=== PATIENT | female | born 1965 | race Caucasian/White ===

== ENCOUNTER → 2017-04-10 | Day surgery (SDC) | payer MEDICARE, OTHER ==
[2017-04-07 15:10] VITALS: BMI 31.8
[~2017-04-10] MED LIST: LACTATED RINGERS 1,000 ML IV SCH; LIDOCAINE 1% 20 ML VIAL (10MG/ML) FOR IV START INTRADERMA PRN; MIDAZOLAM 2 MG/2 ML VIAL ONE; PROPOFOL 10 MG/ML 20 ML VIAL IV ONE; fentaNYL (PF) 50 MCG/ML 2 ML AMP ONE
[2017-04-10 08:08] VITALS: RESP 16; TEMP 98.7
[2017-04-10 08:16] LABS: Glucose,Whole Blood 172 mg/dL (75-99)
--- NOTE | 2017-04-10 08:39 | P.PCN ---
Date of Procedure: 04/10/17 Procedure(s) Performed: BRIEF HISTORY: Patient is a 51-year-old pleasant white female, scheduled for an elective colonoscopy as a part of screening for colorectal neoplasia. PROCEDURE PERFORMED: Colonoscopy. PREOPERATIVE DIAGNOSIS: Screening for colon cancer. IV sedation per Anesthesia. PROCEDURE: After informed consent was obtained, the patient, was brought into the endoscopy unit. IV sedation was administered by Anesthesia under continuous monitoring. Digital rectal examination was normal. Initially the Olympus CF- 160 flexible video colonoscope was then inserted in the rectum, gradually advanced into the cecum without any difficulty. Careful examination was performed as the scope was gradually being withdrawn. Ileocecal valve and the appendiceal orifice were visualized and appeared normal. Prep was excellent. Mucosa of the cecum, ascending colon, transverse colon, descending colon, sigmoid colon, and rectum appeared normal. Retroflexion was performed in the rectum and no lesions were seen. The patient tolerated the procedure well. IMPRESSION: Normal-appearing colon from rectum to cecum with no evidence of colonic neoplasia . RECOMMENDATIONS: Findings of this examination were discussed with the patient as well as a family. She was advised to have a repeat screening colonoscopy in 10 years..
[2017-04-10 08:56] VITALS: BP 121/76; PULSE 80
== END ==
LOC: ORWHC2ENDO 07:24
PROVIDERS: ATTEND Internal Medicine Gastroenterology
DX: Z12.11 Encounter for screening for malignant neoplasm of colon (principal); Z79.84 Long term (current) use of oral hypoglycemic drugs; Z79.891 Long term (current) use of opiate analgesic; Z79.51 Long term (current) use of inhaled steroids; Z79.899 Other long term (current) drug therapy; J44.9 Chronic obstructive pulmonary disease, unspecified; F17.200 Nicotine dependence, unspecified, uncomplicated; E13.8 Other specified diabetes mellitus with unspecified complications; Z87.442 Personal history of urinary calculi; F31.9 Bipolar disorder, unspecified; F41.0 Panic disorder [episodic paroxysmal anxiety]; Z88.5 Allergy status to narcotic agent; Z88.2 Allergy status to sulfonamides
CPT/HCPCS: J2250; J3010; J2704; G0121

== ENCOUNTER → 2017-05-07 | Outpatient (CLI) | payer MEDICARE, OTHER ==
--- NOTE | 2017-05-08 05:27 | EST ---
EXERCISE STRESS DATE OF SERVICE: 05/07/2017 AGE: 51 SEX: Female HT: 62" WT: 180 pounds PROTOCOL: Exercise Tolerance, Soy. STAGE: I DURATION OF EXERCISE: 3 minutes HEART RATE REST: 95 BLOOD PRESSURE REST: 117/59 MAXIMUM HEART RATE ACHIEVED: 132 MAXIMUM BLOOD PRESSURE: 199/68 85% MPHR: 143 100% MPHR: 168 METS: 4.6 INDICATIONS: Chest pain. CLINICAL INFORMATION: Baseline EKG revealed normal sinus rhythm without significant ST-T changes. Patient walked on a standard Soy protocol for 3 minutes, achieved a maximal heart rate 132 beats per minute. Developed fatigue, complained of some tightness in the chest, difficulty in breathing and did not wish to walk any longer. She did not achieve her 85% of predicted maximal heart rate, but at this level. EKG did not reveal any ST- segment changes to indicate ischemia. There was no angina or arrhythmia. By EKG criteria, this is a inconclusive stress test because of inadequate chronotropic response with very limited exercise capacity. The patient had some atypical chest pain. If ischemia is strongly suspected, a pharmacological stress test would be a better approach. MMODL / IJN: [id number] /
--- NOTE | 2017-05-08 11:37 | MM ---
Reason for exam: screening (asymptomatic). Baseline mammogram. History: Patient is postmenopausal. Physical Findings: A clinical breast exam by your physician is recommended on an annual basis and results should be correlated with mammographic findings. MG 3D Screening Mammo W/Cad Bilateral CC and MLO view(s) were taken. The breast tissue is heterogeneously dense. This may lower the sensitivity of mammography. There is no discrete abnormality. ASSESSMENT: Negative, BI-RAD 1 RECOMMENDATION: Routine screening mammogram of both breasts in 1 year. Manage on a clinical basis with regard to bilateral swelling and pain.
== END | disposition home or self-care (01) ==
LOC: RADMAMWWP 10:25
PROVIDERS: ATTEND Internal Medicine
DX: Z12.31 Encounter for screening mammogram for malignant neoplasm of breast (principal); R53.83 Other fatigue; R07.89 Other chest pain; R06.00 Dyspnea, unspecified
CPT/HCPCS: 77063; 77067; 93017

== ENCOUNTER 2017-08-20 00:02 | Emergency (ER) | payer MEDICARE ==
[2017-08-20 00:25] VITALS: RESP 18
[2017-08-20] MEDS ORDERED: MAG HYDROX/AL HYDROX/SIMETH 30 ML, HYOSCYAMINE ELIXIR 10 ML, CIMETIDINE HCL 300 MG, LID... PO STA ×4 (01:18)
[2017-08-20] MEDS ORDERED: LORazepam 1 MG TAB PO STA (02:06)
--- NOTE | 2017-08-20 03:11 | ED ---
ENT HPI - General Chief complaint: ENT Stated complaint: Throat pain Time Seen by Provider: 08/20/17 01:01 Source: patient Mode of arrival: ambulatory Limitations: no limitations - History of Present Illness Initial comments: 52-year-old female patient presents to the emergency department today for complaints of anxiety and difficulty swallowing. Patient states that she has been having trouble with swallowing for the last 2 years. States that she has been unable to follow-up with ENT due to her insurance. She states that he got done eating pizza rolls and eating ice cream and started to have difficulty swallowing. Patient states that it felt like her throat was swollen. States that this caused spike in her anxiety. States she did take half of Xanax but was not helping. Patient denies any fevers or chills. Denies any shortness of breath. States that her anxiety is quite bad. She denies any suicidal or homicidal ideation. Patient denies any recent rash, chest pain, abdominal pain, nausea, vomiting, diarrhea, constipation, back pain, numbness, tingling, dizziness, weakness, hematuria, dysuria, urinary urgency, urinary frequency, headache, visual changes, or any other complaints. - Related Data Home Medications Medication Instructions Recorded Confirmed ALPRAZolam [Xanax] 0.5 mg PO BID PRN 04/25/15 04/10/17 Cholecalciferol [Vitamin D3] 5,000 unit PO QA 04/25/15 04/10/17 Loratadine [Claritin] 10 mg PO HS 04/25/15 04/10/17 Mupirocin 2% Oint [Bactroban 2% 1 applic TOPICAL DAILY PRN 04/25/15 04/10/17 Oint] Sennosides [Senokot] 8.6 mg PO BID PRN 04/25/15 04/10/17 cloNIDine HCL [Catapres] 0.1 mg PO HS 04/25/15 04/10/17 oxyCODONE-APAP 7.5-325MG [Percocet 1 tab PO Q4H PRN 04/25/15 04/06/17 7.5-325 mg] Aspirin [Adult Low Dose Aspirin EC] 162 mg PO HS 06/13/15 04/10/17 Beclomethasone Dipropionate [Qvar 1 puff INHALATION RT-BID 06/13/15 04/10/17 40 mcg/puff] Cyclobenzaprine [Flexeril] 10 mg PO TID PRN 09/04/15 04/10/17 PARoxetine HCL [Paxil] 20 mg PO HS 12/14/15 04/10/17 Pregabalin [Lyrica] 75 mg PO TID 01/10/16 04/06/17 Zolpidem [Ambien] 5 mg PO HS PRN 01/10/16 04/10/17 Albuterol Inhaler [Ventolin Hfa 2 puff INHALATION RT-TID PRN 01/12/16 04/10/17 Inhaler] metFORMIN HCL [Metformin HCl] 500 mg PO DAILY 07/31/16 04/06/17 Atorvastatin Calcium [Lipitor] 20 mg PO HS 04/06/17 04/10/17 Bisacodyl [Dulcolax] 5 mg PO DAILY PRN 04/06/17 04/10/17 Clotrimazole/Betameth Cream 1 applicate TOPICAL DAILY PRN 04/06/17 04/10/17 [Lotrisone] Losartan Potassium [Cozaar] 25 mg PO HS 04/06/17 04/10/17 Multivit with Calcium,Iron,Min 1 each PO DAILY 04/06/17 04/06/17 [Women's Multivitamin] Naproxen 500 mg PO BID PRN 04/06/17 04/10/17 Pantoprazole [Protonix] 40 mg PO BID 04/06/17 04/06/17 Allergies Allergy/AdvReac Type Severity Reaction Status Date / Time codeine Allergy Rash/Hives Verified 08/20/17 00:22 Sulfa (Sulfonamide Allergy Rash/Hives Verified 08/20/17 00:22 Antibiotics) Review of Systems ROS Statement: Those systems with pertinent positive or pertinent negative responses have been documented in the HPI. ROS Other: All systems not noted in ROS Statement are negative. Past Medical History Past Medical History: COPD, Diabetes Mellitus, GERD/Reflux Additional Past Medical History / Comment(s): back pain, gas & constipation, cervical spine stenosis;murmur as child, problems chewing & swallowing x 2 years, told in past she had a bad heart valve ,kidney stones, uti, "at times my heart feels like its fluttering like a butterfly", arthritis, stated has had a pne vaccine but date unk. History of Any Multi-Drug Resistant Organisms: None Reported Past Surgical History: Section, Orthopedic Surgery Additional Past Surgical History / Comment(s): foot surgery as a child Past Anesthesia/Blood Transfusion Reactions: Motion Sickness Past Psychological History: ADD/ADHD, Anxiety, Bipolar, Depression, Panic Disorder, PTSD, Schizoaffective Disorder Smoking Status: Current every day smoker Past Alcohol Use History: Rare Past Drug Use History: None Reported - Past Family History Mother History Unknown: Yes Family Medical History: Cancer, COPD, Diabetes Mellitus, Pneumonia Additional Family Medical History / Comment(s): .i know she has copd because she 's on oxygen",mental illness Father Family Medical History: Cancer Additional Family Medical History / Comment(s): lung/bone cancer General Exam Limitations: no limitations General appearance: alert, in no apparent distress, other (This is a well- developed, well-nourished adult female patient in mild distress due to anxiety. Vital signs upon presentation are temperature 98.4F, pulse 75, respirations 18, blood pressure 160/81, pulse ox 98% on room air.) Eye exam: Present: normal appearance, PERRL, EOMI. Absent: scleral icterus, conjunctival injection, periorbital swelling ENT exam: Present: normal exam, normal oropharynx, mucous membranes moist Neck exam: Present: normal inspection. Absent: tenderness, meningismus, lymphadenopathy Respiratory exam: Present: normal lung sounds bilaterally. Absent: respiratory distress, wheezes, rales, rhonchi, stridor Cardiovascular Exam: Present: regular rate, normal rhythm, normal heart sounds. Absent: systolic murmur, diastolic murmur, rubs, gallop, clicks GI/Abdominal exam: Present: soft, normal bowel sounds. Absent: distended, tenderness, guarding, rebound, rigid Neurological exam: Present: alert, oriented X3, CN II-XII intact Psychiatric exam: Present: normal affect, normal mood Skin exam: Present: warm, dry, intact, normal color. Absent: rash Course Vital Signs 08/20/17 08/20/17 00:22 01:41 Temperature 98.4 F Pulse Rate 75 Respiratory 18 18 Rate Blood Pressure 168/81 O2 Sat by Pulse 98 Oximetry Medical Decision Making - Medical Decision Making 52-year-old female patient presents to the emergency department today for evaluation of difficulty swallowing and anxiety. Physical examination is unremarkable. Lungs are clear to auscultation with good air movement. Physical examination of the oropharynx appeared normal. Patient was given a GI cocktail and 1 mg of Ativan. She states that her symptoms are much improved. She is followed without difficulty. Drinking water without difficulty. Respirations are even and unlabored. Patient does report having increased anxiety and depression related to the recent of her cats. She will be given outpatient referrals for counseling. She is instructed to follow-up with your nose and throat specialty as well as GI specialty for evaluation of her difficulty swallowing. Return parameters were discussed in detail. She verbalizes understanding and agrees with this plan. Disposition Clinical Impression: Dysphagia, Anxiety Disposition: HOME SELF-CARE Condition: Good Instructions: Generalized Anxiety Disorder (ED), Dysphagia (ED) Additional Instructions: Follow-up with counseling outpatient. Follow-up with your nose and throat specialty as well as gastroenterology to evaluate your difficulty swallowing. Return here immediately for any new, worsening, or concerning symptoms. Is patient prescribed a controlled substance at d/c from ED?: No Referrals: Susy Gooden MD [Primary Care Provider] - 1-2 days Edouard Montgomery MD [STAFF PHYSICIAN] - 1-2 days Gorge Bobo MD [STAFF PHYSICIAN] - 1-2 days Time of Disposition: 03:11
[2017-08-20 03:38] VITALS: BP 146/82; PULSE 67; TEMP 98.6
== END 2017-08-20 03:38 | disposition home or self-care (01) ==
LOC: EC 00:02
DX: R13.10 Dysphagia, unspecified (principal); F41.9 Anxiety disorder, unspecified; J44.9 Chronic obstructive pulmonary disease, unspecified; E11.9 Type 2 diabetes mellitus without complications; K21.9 Gastro-esophageal reflux disease without esophagitis; F31.9 Bipolar disorder, unspecified; F25.9 Schizoaffective disorder, unspecified; F43.10 Post-traumatic stress disorder, unspecified; F17.200 Nicotine dependence, unspecified, uncomplicated; Z88.2 Allergy status to sulfonamides; Z88.5 Allergy status to narcotic agent; Z79.51 Long term (current) use of inhaled steroids; Z79.82 Long term (current) use of aspirin; Z79.84 Long term (current) use of oral hypoglycemic drugs; Z79.899 Other long term (current) drug therapy
CPT/HCPCS: 99282

== ENCOUNTER 2017-08-20 20:55 | Observation (INO) | payer MEDICARE ==
[2017-08-20] MEDS ORDERED: LORazepam 1 MG TAB PO STA (21:49)
[2017-08-20] MEDS ORDERED: SODIUM CHLORIDE 0.9% 1,000 ML IV STA (21:49)
[2017-08-20] MEDS ORDERED: MAG HYDROX/AL HYDROX/SIMETH 30 ML, HYOSCYAMINE ELIXIR 10 ML, CIMETIDINE HCL 300 MG, LID... PO STA ×4 (21:50)
[2017-08-20 22:10] LABS: Glucose,Whole Blood 197 mg/dL (75-99)
[2017-08-20 22:11] LABS: Basophils # (A) 0.1 k/uL (0-0.2); Basophils % (A) 1 %; Eosinophils # (A) 0.2 k/uL (0-0.7); Eosinophils % (A) 2 %; HCT 45.2 % (34.0-46.0); HGB 15.1 gm/dL (11.4-16.0); Lymphocytes # (A) 2.1 k/uL (1.0-4.8); Lymphocytes % (A) 24 %; MCH 29.5 pg (25.0-35.0); MCHC 33.4 g/dL (31.0-37.0); MCV 88.5 fL (80.0-100.0); Mean Platelet Volume 7.6; Monocytes # (A) 0.6 k/uL (0-1.0); Monocytes % (A) 7 %; Neutrophils # (A) 5.6 k/uL (1.3-7.7); Neutrophils % (A) 64 %; Platelet Count 238 k/uL (150-450); RBC 5.11 m/uL (3.80-5.40); RDW 14.2 % (11.5-15.5); WBC 8.8 k/uL (3.8-10.6)
--- NOTE | 2017-08-20 22:12 | ED ---
Anxiety HPI - General Chief Complaint: Anxiety Stated Complaint: anxiety Time Seen by Provider: 08/20/17 21:31 Source: patient, RN notes reviewed, old records reviewed Mode of arrival: EMS - History of Present Illness Initial Comments: 52-year-old female presents emergency department today chief complaint of chest pain. She reports that she was taking her pills this evening when she started feeling her throat was closing having chest pain. She was here yesterday for same evaluation diagnosed with anxiety. She reports that she takes alprazolam twice a day. She sees her primary care provider for her medications. Does not see a counselor psychiatrist. Patient states that she called her primary care provider told she was told to come here for further evaluation. Patient does have history of hyperlipidemia, hypertension, diabetes. She is a smoker. - Related Data Home Medications: Home Medications Medication Instructions Recorded Confirmed ALPRAZolam [Xanax] 0.5 mg PO BID PRN 04/25/15 08/20/17 Cholecalciferol [Vitamin D3] 5,000 unit PO QA 04/25/15 08/20/17 Loratadine [Claritin] 10 mg PO HS 04/25/15 08/20/17 Mupirocin 2% Oint [Bactroban 2% 1 applic TOPICAL DAILY PRN 04/25/15 08/20/17 Oint] Sennosides [Senokot] 8.6 mg PO BID PRN 04/25/15 08/20/17 cloNIDine HCL [Catapres] 0.1 mg PO HS 04/25/15 08/20/17 oxyCODONE-APAP 7.5-325MG [Percocet 1 tab PO Q4H PRN 04/25/15 08/20/17 7.5-325 mg] Aspirin [Adult Low Dose Aspirin EC] 162 mg PO HS 06/13/15 08/20/17 Beclomethasone Dipropionate [Qvar 1 puff INHALATION RT-BID 06/13/15 08/20/17 40 mcg/puff] Cyclobenzaprine [Flexeril] 10 mg PO TID PRN 09/04/15 08/20/17 PARoxetine HCL [Paxil] 20 mg PO HS 12/14/15 08/20/17 Pregabalin [Lyrica] 75 mg PO TID 01/10/16 08/20/17 Zolpidem [Ambien] 5 mg PO HS PRN 01/10/16 08/20/17 Albuterol Inhaler [Ventolin Hfa 2 puff INHALATION RT-TID PRN 01/12/16 08/20/17 Inhaler] metFORMIN HCL [Metformin HCl] 500 mg PO DAILY 07/31/16 08/20/17 Atorvastatin Calcium [Lipitor] 20 mg PO HS 04/06/17 08/20/17 Bisacodyl [Dulcolax] 5 mg PO DAILY PRN 04/06/17 08/20/17 Clotrimazole/Betameth Cream 1 applicate TOPICAL DAILY PRN 04/06/17 08/20/17 [Lotrisone] Losartan Potassium [Cozaar] 25 mg PO HS 04/06/17 08/20/17 Multivit with Calcium,Iron,Min 1 each PO DAILY 04/06/17 08/20/17 [Women's Multivitamin] Naproxen 500 mg PO BID PRN 04/06/17 08/20/17 Pantoprazole [Protonix] 40 mg PO BID 04/06/17 08/20/17 Allergies/Adverse Reactions: Allergies Allergy/AdvReac Type Severity Reaction Status Date / Time codeine Allergy Rash/Hives Verified 08/20/17 23:15 Sulfa (Sulfonamide Allergy Rash/Hives Verified 08/20/17 23:15 Antibiotics) Review of Systems ROS Statement: Those systems with pertinent positive or pertinent negative responses have been documented in the HPI. ROS Other: All systems not noted in ROS Statement are negative. Past Medical History Past Medical History: COPD, Diabetes Mellitus, GERD/Reflux Additional Past Medical History / Comment(s): back pain, gas & constipation, cervical spine stenosis;murmur as child, problems chewing & swallowing x 2 years, told in past she had a bad heart valve ,kidney stones, uti, "at times my heart feels like its fluttering like a butterfly", arthritis, stated has had a pne vaccine but date unk. History of Any Multi-Drug Resistant Organisms: None Reported Date of last positivie culture/infection: 2015 MDRO Source:: nasal Past Surgical History: Section, Orthopedic Surgery Additional Past Surgical History / Comment(s): foot surgery as a child Past Anesthesia/Blood Transfusion Reactions: Motion Sickness Past Psychological History: ADD/ADHD, Anxiety, Bipolar, Depression, Panic Disorder, PTSD, Schizoaffective Disorder Smoking Status: Current every day smoker Past Alcohol Use History: Rare Past Drug Use History: None Reported - Past Family History Mother History Unknown: Yes Family Medical History: Cancer, COPD, Diabetes Mellitus, Pneumonia Additional Family Medical History / Comment(s): .i know she has copd because she 's on oxygen",mental illness Father Family Medical History: Cancer Additional Family Medical History / Comment(s): lung/bone cancer General Exam - General Exam Comments Initial Comments: Patient is a 52-year-old female. Alert and oriented. No significant distress. Limitations: no limitations General appearance: alert, in no apparent distress Head exam: Present: atraumatic, normocephalic, normal inspection Eye exam: Present: normal appearance, PERRL, EOMI. Absent: scleral icterus, conjunctival injection, periorbital swelling ENT exam: Present: normal exam, mucous membranes moist Neck exam: Present: normal inspection. Absent: tenderness, meningismus, lymphadenopathy Respiratory exam: Present: normal lung sounds bilaterally. Absent: respiratory distress, wheezes, rales, rhonchi, stridor Cardiovascular Exam: Present: regular rate, normal rhythm, normal heart sounds. Absent: systolic murmur, diastolic murmur, rubs, gallop, clicks GI/Abdominal exam: Present: soft, normal bowel sounds. Absent: distended, tenderness, guarding, rebound, rigid Extremities exam: Present: normal inspection, full ROM, normal capillary refill. Absent: tenderness, pedal edema, joint swelling, calf tenderness Back exam: Present: normal inspection Neurological exam: Present: alert, oriented X3, CN II-XII intact Psychiatric exam: Present: normal affect, normal mood Skin exam: Present: warm, dry, intact, normal color. Absent: rash Course Vital Signs 08/20/17 08/20/17 08/20/17 21:00 22:01 22:45 Temperature 98.4 F Pulse Rate 90 77 Pulse Rate [ 90 Radial] Respiratory 18 20 Rate Blood Pressure 165/90 146/71 O2 Sat by Pulse 98 97 Oximetry 08/20/17 23:19 Temperature Pulse Rate 80 Pulse Rate [ Radial] Respiratory 18 Rate Blood Pressure 151/84 O2 Sat by Pulse 95 Oximetry Medical Decision Making - Medical Decision Making This Patient is a 52-year-old female presents with a chief complaint of chest pain shortness of breath and feels like throat closing. It occurred around 6: 00 when she was taking her medications. She was evaluated yesterday for similar complaints. She initially Related to anxiety. She was sent here for further evaluation and rule out cardiac etiology. This time patient's EKG was reviewed and shows no acute changes. Vitals are all stable. Chest x-ray was reviewed to be normal. Patient's labwork was relatively unremarkable. She did have a mildly elevated troponin of 0.033. With her risk factors and mild elevation of troponin continue to complain of chest pain and wouldlike to rule out any cardiac abnormalities. Repeat troponins. Patient agrees to admission. - Lab Data Result diagrams: 08/20/17 21:57 08/20/17 21:57 Lab Results 08/20/17 08/20/17 08/20/17 Range/Units 21:57 21:57 21:57 WBC 8.8 (3.8-10.6) k/uL RBC 5.11 (3.80-5.40) m/uL Hgb 15.1 (11.4-16.0) gm/dL Hct 45.2 (34.0-46.0) % MCV 88.5 (80.0-100.0) fL MCH 29.5 (25.0-35.0) pg MCHC 33.4 (31.0-37.0) g/dL RDW 14.2 (11.5-15.5) % Plt Count 238 (150-450) k/uL Neutrophils % 64 % Lymphocytes % 24 % Monocytes % 7 % Eosinophils % 2 % Basophils % 1 % Neutrophils # 5.6 (1.3-7.7) k/uL Lymphocytes # 2.1 (1.0-4.8) k/uL Monocytes # 0.6 (0-1.0) k/uL Eosinophils # 0.2 (0-0.7) k/uL Basophils # 0.1 (0-0.2) k/uL Sodium 141 (137-145) mmol/L Potassium 4.7 (3.5-5.1) mmol/L Chloride 105 (98-107) mmol/L Carbon Dioxide 27 (22-30) mmol/L Anion Gap 9 mmol/L BUN 9 (7-17) mg/dL Creatinine 0.70 (0.52-1.04) mg/dL Est GFR (CKD-EPI)AfAm >90 (>60 ml/min/1.73 sqM) Est GFR (CKD-EPI)NonAf >90 (>60 ml/min/1.73 sqM) Glucose 233 H (74-99) mg/dL POC Glucose (mg/dL) (75-99) mg/dL POC Glu [place] [employer] ID Calcium 9.8 (8.4-10.2) mg/dL Total Bilirubin 0.4 (0.2-1.3) mg/dL AST 57 H (14-36) U/L ALT 82 H (9-52) U/L Alkaline Phosphatase 118 (38-126) U/L Troponin I 0.033 (0.000-0.034) ng/mL Total Protein 7.7 (6.3-8.2) g/dL Albumin 4.5 (3.5-5.0) g/dL TSH 2.400 (0.465-4.680) mIU/L Urine Color Urine Appearance (Clear) Urine pH (5.0-8.0) Ur Specific [place] (1.001-1.035) Urine Protein (Negative) Urine Glucose (UA) (Negative) Urine Ketones (Negative) Urine Blood (Negative) Urine Nitrite (Negative) Urine Bilirubin (Negative) Urine Urobilinogen (<2.0) mg/dL Ur Leukocyte Esterase (Negative) Urine RBC (0-5) /hpf Urine WBC (0-5) /hpf Ur Squamous Epith Cells (0-4) /hpf Urine Mucus (None) /hpf Urine Opiates Screen (NotDetected) Ur Oxycodone Screen (NotDetected) Urine Methadone Screen (NotDetected) Ur Propoxyphene Screen (NotDetected) Ur Barbiturates Screen (NotDetected) U Tricyclic Antidepress (NotDetected) Ur Phencyclidine Scrn (NotDetected) Ur Amphetamines Screen (NotDetected) U Methamphetamines Scrn (NotDetected) U Benzodiazepines Scrn (NotDetected) Urine Cocaine Screen (NotDetected) U Marijuana (THC) Screen (NotDetected) 08/20/17 08/20/17 Range/Units 22:09 22:45 WBC (3.8-10.6) k/uL RBC (3.80-5.40) m/uL Hgb (11.4-16.0) gm/dL Hct (34.0-46.0) % MCV (80.0-100.0) fL MCH (25.0-35.0) pg MCHC (31.0-37.0) g/dL RDW (11.5-15.5) % Plt Count (150-450) k/uL Neutrophils % % Lymphocytes % % Monocytes % % Eosinophils % % Basophils % % Neutrophils # (1.3-7.7) k/uL Lymphocytes # (1.0-4.8) k/uL Monocytes # (0-1.0) k/uL Eosinophils # (0-0.7) k/uL Basophils # (0-0.2) k/uL Sodium (137-145) mmol/L Potassium (3.5-5.1) mmol/L Chloride (98-107) mmol/L Carbon Dioxide (22-30) mmol/L Anion Gap mmol/L BUN (7-17) mg/dL Creatinine (0.52-1.04) mg/dL Est GFR (CKD-EPI)AfAm (>60 ml/min/1.73 sqM) Est GFR (CKD-EPI)NonAf (>60 ml/min/1.73 sqM) Glucose (74-99) mg/dL POC Glucose (mg/dL) 197 H (75-99) mg/dL POC Glu [place] [employer] ID Lázaro Herndon Calcium (8.4-10.2) mg/dL Total Bilirubin (0.2-1.3) mg/dL AST (14-36) U/L ALT (9-52) U/L Alkaline Phosphatase (38-126) U/L Troponin I (0.000-0.034) ng/mL Total Protein (6.3-8.2) g/dL Albumin (3.5-5.0) g/dL TSH (0.465-4.680) mIU/L Urine Color Yellow Urine Appearance Clear (Clear) Urine pH 5.0 (5.0-8.0) Ur Specific [place] 1.017 (1.001-1.035) Urine Protein Trace H (Negative) Urine Glucose (UA) 4+ H (Negative) Urine Ketones Negative (Negative) Urine Blood Negative (Negative) Urine Nitrite Negative (Negative) Urine Bilirubin Negative (Negative) Urine Urobilinogen <2.0 (<2.0) mg/dL Ur Leukocyte Esterase Large H (Negative) Urine RBC 4 (0-5) /hpf Urine WBC 5 (0-5) /hpf Ur Squamous Epith Cells 3 (0-4) /hpf Urine Mucus Rare H (None) /hpf Urine Opiates Screen Not Detected (NotDetected) Ur Oxycodone Screen Not Detected (NotDetected) Urine Methadone Screen Not Detected (NotDetected) Ur Propoxyphene Screen Not Detected (NotDetected) Ur Barbiturates Screen Not Detected (NotDetected) U Tricyclic Antidepress Not Detected (NotDetected) Ur Phencyclidine Scrn Not Detected (NotDetected) Ur Amphetamines Screen Not Detected (NotDetected) U Methamphetamines Scrn Not Detected (NotDetected) U Benzodiazepines Scrn Detected H (NotDetected) Urine Cocaine Screen Not Detected (NotDetected) U Marijuana (THC) Screen Not Detected (NotDetected) 08/20/17 23:24 EKG performed at 2208 shows normal sinus rhythm normal EKG. Ventricular rate 72 beats were minute. Was 180 ms. QRS duration 84. QT QTc is 420/459 ms. No evidence of ST elevation or T-wave inversion. - Radiology Data Radiology results: report reviewed Chest x-ray was reviewed to be normal. No acute changes. Disposition Clinical Impression: Chest pain, Acute anxiety Disposition: ADMITTED IP TO THIS HOSP Condition: Stable Instructions: Generalized Anxiety Disorder (ED) Is patient prescribed a controlled substance at d/c from ED?: No When asked, does pt state using other controlled substances?: No If prescribed controlled substance>3 days was MAPS reviewed?: No If opioid is for acute pain is fill amount 7 days or less?: No If Rx opioid, was Start Talking consent form obtained?: No Referrals: Susy Gooden MD [Primary Care Provider] - 1-2 days Time of Disposition: 23:28
[2017-08-20 22:21] LABS: ALT 82 U/L (9-52); AST 57 U/L (14-36); Albumin 4.5 g/dL (3.5-5.0); Alkaline Phosphatase 118 U/L (38-126); Anion Gap 9 mmol/L; Blood Urea Nitrogen 9 mg/dL (7-17); Calcium 9.8 mg/dL (8.4-10.2); Carbon Dioxide 27 mmol/L (22-30); Chloride 105 mmol/L (98-107); Glucose 233 mg/dL (74-99); Potassium 4.7 mmol/L (3.5-5.1); Sodium 141 mmol/L (137-145); Total Bilirubin 0.4 mg/dL (0.2-1.3); Total Protein 7.7 g/dL (6.3-8.2)
[2017-08-20] MEDS ORDERED: ASPIRIN 325 MG TAB PO STA (23:01)
[2017-08-20] MEDS ORDERED: PANTOPRAZOLE 40 MG/10 ML VIAL IVP STA (23:03)
[2017-08-20 23:08] LABS: Appearance,Urine Clear (Clear); Bilirubin,Urine Negative (Negative); Blood,Urine Negative (Negative); Color,Urine Yellow; Glucose,Urine (UA) 4+ (Negative); Ketones,Urine Negative (Negative); Leukocyte Esterase,Urine Large (Negative); Mucus,Urine Rare /hpf; Nitrite,Urine Negative (Negative); Protein,Urine Trace (Negative); RBC,Urine 4 /hpf (0-5); Specific Gravity,Urine 1.017 (1.001-1.035); Squamous Epithelial Cell,Urine 3 /hpf (0-4); Urobilinogen,Urine <2.0 mg/dL (<2.0); WBC,Urine 5 /hpf (0-5)
[2017-08-20 23:15] LABS: Amphetamine Screen,Urine Not Detected (NotDetected); Barbiturate Screen,Urine Not Detected (NotDetected); Benzodiazepines Screen,Urine Detected (NotDetected); Cocaine Screen,Urine Not Detected (NotDetected); Methadone Screen, Urine Not Detected (NotDetected); Opiate Screen,Urine Not Detected (NotDetected); Oxycodone Screen, Urine Not Detected (NotDetected); Phencyclidine Screen,Urine Not Detected (NotDetected); Tricyclic Antidepressant,Urine Not Detected (NotDetected); Urn Cannabinoid Scrn Not Detected (NotDetected)
--- NOTE | 2017-08-20 23:21 | XR ---
EXAMINATION TYPE: XR chest 2V DATE OF EXAM: 08/20/2017 COMPARISON: 01/10/2016 HISTORY: Anxiety. COPD. TECHNIQUE: Frontal and lateral views of the chest are obtained. FINDINGS: Heart and mediastinum are normal. Lungs are clear. Diaphragm is normal. There are chest le ads. Bony thorax appears normal. IMPRESSION: Normal chest. No change.
[2017-08-20] MEDS ORDERED: NALOXONE 0.4 MG/ML 1 ML VIAL IV PRN (23:28)
[2017-08-20] MEDS ORDERED: KETOROLAC 30 MG/ML 1 ML VIAL IVP PRN (23:28)
[2017-08-20] MEDS ORDERED: ACETAMINOPHEN TAB 325 MG TAB PO PRN (23:28)
[2017-08-20] MEDS ORDERED: IBUPROFEN 400 MG TAB PO PRN (23:28)
[2017-08-20] MEDS ORDERED: ONDANSETRON 4 MG/2 ML VIAL IVP PRN (23:28)
[2017-08-20] MEDS ORDERED: MORPHINE SULFATE 2 MG/ML SYRINGE IV PRN (23:28)
[2017-08-20] MEDS ORDERED: BISACODYL 5 MG TABLET.DR PO PRN (23:30)
[2017-08-20] MEDS ORDERED: ZOLPIDEM 5 MG TAB PO PRN (23:30)
[2017-08-20] MEDS ORDERED: CYCLOBENZAPRINE 10 MG TAB PO PRN (23:30)
[2017-08-20] MEDS ORDERED: NAPROXEN 250 MG TAB PO PRN (23:30)
[2017-08-20] MEDS ORDERED: SENNOSIDES 8.6 MG TAB PO PRN (23:30)
[2017-08-20] MEDS ORDERED: MUPIROCIN 2% OINT 22 GM TUBE TOPICAL PRN (23:30)
[2017-08-21] MEDS: PREGABALIN 75 MG CAP PO SCH ×3 (01:21→15:25)
[2017-08-21] MEDS: oxyCODONE-APAP 7.5-325MG 1 EACH TAB PO PRN ×2 (01:21→13:42)
[2017-08-21] MEDS: ALPRAZolam 0.25 MG TAB PO PRN ×2 (01:21→15:24)
[2017-08-21] MEDS: SODIUM CHLORIDE 0.9% 1,000 ML IV SCH ×2 (01:24→11:00)
[2017-08-21 04:47] LABS: Creatine Kinase 116 U/L (30-135)
[2017-08-21 05:00] LABS: Creatine Kinase MB 1.3 ng/mL (0.0-2.4); Troponin I <0.012 ng/mL (0.000-0.034)
[2017-08-21 06:56] LABS: Glucose,Whole Blood 105 mg/dL (75-99)
[2017-08-21] MEDS ORDERED: BUDESONIDE 0.5 MG/2 ML NEBU INHALATION SCH ×2 (08:00→08:37)
[2017-08-21 08:36] VITALS: RESP 16
[2017-08-21] MEDS: ALBUTEROL NEBULIZED 2.5 MG/3 ML INHALATION PRN ×2 (08:48→13:00)
[2017-08-21] MEDS ORDERED: PANTOPRAZOLE 40 MG/10 ML VIAL IV SCH (09:00)
[2017-08-21] MEDS ORDERED: PANTOPRAZOLE 40 MG TABLET PO SCH (09:00)
[2017-08-21] MEDS ORDERED: LOSARTAN 25 MG TAB PO SCH ×2 (09:00→21:00)
[2017-08-21] MEDS ORDERED: metFORMIN 500 MG TAB PO SCH ×2 (09:00→17:30)
--- NOTE | 2017-08-21 09:00 | P.CRDCN ---
History of Present Illness History of present illness: Patient evaluated symptoms associated with swallowing of her medications. Non- anginal. Suggest swallowing evaluation and GI motility evaluation. Cardiac enzymes are normal ECGs normal Please see full dictation by nurse practitioner Past Medical History Past Medical History: COPD, Diabetes Mellitus, GERD/Reflux, Hyperlipidemia Additional Past Medical History / Comment(s): back pain, gas & constipation, cervical spine stenosis;murmur as child, problems chewing & swallowing x 3 years, told in past she had a bad heart valve ,kidney stones, uti, "at times my heart feels like its fluttering like a butterfly", arthritis History of Any Multi-Drug Resistant Organisms: MRSA Date of last positivie culture/infection: 2015 MDRO Source:: nasal Past Surgical History: Section, Orthopedic Surgery Additional Past Surgical History / Comment(s): foot surgery as a child Past Anesthesia/Blood Transfusion Reactions: Motion Sickness Past Psychological History: ADD/ADHD, Anxiety, Bipolar, Depression, Panic Disorder, PTSD, Schizoaffective Disorder Smoking Status: Current every day smoker Past Alcohol Use History: Rare Additional Past Alcohol Use History / Comment(s): smoking: started 1980, smokes 1 PPD Past Drug Use History: None Reported - Past Family History Mother History Unknown: Yes Family Medical History: Cancer, COPD, Diabetes Mellitus, Pneumonia Additional Family Medical History / Comment(s): .i know she has copd because she 's on oxygen",mental illness Father Family Medical History: Cancer Additional Family Medical History / Comment(s): lung/bone cancer Medications and Allergies Home Medications Medication Instructions Recorded Confirmed Type RX: ALPRAZolam [Xanax] 0.5 mg PO BID PRN 04/25/15 08/21/17 History RX: Cholecalciferol [Vitamin D3] 5,000 unit PO QAM 04/25/15 08/21/17 History RX: Loratadine [Claritin] 10 mg PO HS 04/25/15 08/21/17 History RX: Mupirocin 2% Oint [Bactroban 1 applic TOPICAL DAILY PRN 04/25/15 08/21/17 History 2% Oint] RX: Sennosides [Senokot] 8.6 mg PO BID PRN 04/25/15 08/21/17 History RX: oxyCODONE-APAP 7.5-325MG 1 tab PO Q4H PRN 04/25/15 08/21/17 History [Percocet 7.5-325 mg] RX: Aspirin [Adult Low Dose 162 mg PO HS 06/13/15 08/21/17 History Aspirin EC] RX: Beclomethasone Dipropionate 1 puff INHALATION RT-BID 06/13/15 08/21/17 History [Qvar 40 mcg/puff] RX: Cyclobenzaprine [Flexeril] 10 mg PO TID PRN 09/04/15 08/21/17 History RX: PARoxetine HCL [Paxil] 30 mg PO HS 12/14/15 08/21/17 History RX: Pregabalin [Lyrica] 75 mg PO TID 01/10/16 08/21/17 History RX: Zolpidem [Ambien] 5 mg PO HS PRN 01/10/16 08/21/17 History RX: Albuterol Inhaler [Ventolin 2 puff INHALATION RT-TID PRN 01/12/16 08/21/17 History Hfa Inhaler] metFORMIN HCL [Metformin HCl] 500 mg PO DAILY 07/31/16 08/21/17 History Bisacodyl [Dulcolax] 5 mg PO DAILY PRN 04/06/17 08/21/17 History Multivit with Calcium,Iron,Min 1 each PO DAILY 04/06/17 08/21/17 History [Women's Multivitamin] RX: Clotrimazole/Betameth Cream 1 applicate TOPICAL DAILY PRN 04/06/17 08/21/17 History [Lotrisone] RX: Naproxen 500 mg PO BID PRN 04/06/17 08/21/17 History RX: Pantoprazole [Protonix] 40 mg PO BID 04/06/17 08/21/17 History Albuterol Sulfate [Proair Hfa] 1 - 2 puff INHALATION Q6HR PRN 08/21/17 08/21/17 History Triamcinolone 0.5% Cream [Kenalog 1 applic TOPICAL TID 08/21/17 08/21/17 History 0.5% Cream] Allergies Allergy/AdvReac Type Severity Reaction Status Date / Time codeine Allergy Rash/Hives Verified 08/21/17 00:42 Sulfa (Sulfonamide Allergy Rash/Hives Verified 07/13/18 00:42 Antibiotics) Physical Exam Vitals: Vital Signs Temp Pulse Pulse Pulse Resp BP BP 08/21/17 08:48 54 L 08/21/17 08:00 97.5 F L 52 L 16 137/69 08/21/17 03:29 97.6 F 60 18 147/87 08/21/17 03:03 18 08/21/17 00:08 97.9 F 88 18 149/79 08/21/17 00:00 18 08/20/17 23:46 98.4 F 08/20/17 23:19 80 18 151/84 08/20/17 22:45 77 20 146/71 08/20/17 22:01 90 08/20/17 21:00 98.4 F 90 18 165/90 Pulse Ox 08/21/17 08:48 08/21/17 08:00 97 08/21/17 03:29 92 L 08/21/17 03:03 08/21/17 00:08 97 08/21/17 00:00 08/20/17 23:46 08/20/17 23:19 95 08/20/17 22:45 97 08/20/17 22:01 08/20/17 21:00 98 Intake and Output 08/20/17 08/21/17 08/21/17 22:59 06:59 14:59 Other: Voiding Method Toilet Toilet # Voids 1 Weight 90.356 kg Results 08/20/17 21:57 08/20/17 21:57 Cardiac Enzymes 08/20/17 08/20/17 08/21/17 Range/Units 21:57 21:57 03:53 AST 57 H (14-36) U/L CK-MB (CK-2) 1.3 (0.0-2.4) ng/mL Troponin I 0.033 <0.012 (0.000-0.034) ng/mL CBC 08/20/17 Range/Units 21:57 WBC 8.8 (3.8-10.6) k/uL RBC 5.11 (3.80-5.40) m/uL Hgb 15.1 (11.4-16.0) gm/dL Hct 45.2 (34.0-46.0) % Plt Count 238 (150-450) k/uL Comprehensive Metabolic Panel 08/20/17 Range/Units 21:57 Sodium 141 (137-145) mmol/L Potassium 4.7 (3.5-5.1) mmol/L Chloride 105 (98-107) mmol/L Carbon Dioxide 27 (22-30) mmol/L BUN 9 (7-17) mg/dL Creatinine 0.70 (0.52-1.04) mg/dL Glucose 233 H (74-99) mg/dL Calcium 9.8 (8.4-10.2) mg/dL AST 57 H (14-36) U/L ALT 82 H (9-52) U/L Alkaline Phosphatase 118 (38-126) U/L Total Protein 7.7 (6.3-8.2) g/dL Albumin 4.5 (3.5-5.0) g/dL Current Medications Generic Name Dose Route Start Last Admin Trade Name Freq PRN Reason Stop Dose Admin Acetaminophen 650 mg 08/20/17 23:28 Tylenol Tab PO Q6HR PRN Mild Pain or Fever > 100.5 Albuterol Sulfate 2.5 mg 08/20/17 23:30 08/21/17 08:48 Ventolin Nebulized INHALATION 2.5 mg RT-TID PRN Administration Shortness Of Breath Alprazolam 0.25 mg 08/20/17 23:28 08/21/17 01:21 Xanax PO 0.25 mg Q6HR PRN Administration Anxiety Aspirin 81 mg 08/21/17 21:00 Aspirin PO HS ЕЛЕНА Atorvastatin Calcium 20 mg 08/21/17 21:00 Lipitor PO HS ЕЛЕНА Bisacodyl 5 mg 08/20/17 23:30 Dulcolax PO DAILY PRN Constipation Budesonide 0.5 mg 08/21/17 08:37 08/21/17 08:48 Pulmicort INHALATION 0.5 mg RT-BID ЕЛЕНА Administration Cyclobenzaprine HCl 10 mg 08/20/17 23:30 Flexeril PO TID PRN Pain Sodium Chloride 1,000 mls @ 100 mls/hr 08/20/17 23:30 08/21/17 01:24 Saline 0.9% IV 100 mls/hr .Q10H ЕЛЕНА Administration Ibuprofen 400 mg 08/20/17 23:28 Motrin PO Q6HR PRN Mild Pain or Fever > 100.5 Loratadine 10 mg 08/21/17 21:00 Claritin PO HS [facility] Losartan Potassium 25 mg 08/21/17 09:00 Cozaar PO DAILY ЕЛЕНА Metformin HCl 500 mg 08/21/17 09:00 Glucophage PO DAILY [facility] Morphine Sulfate 4 mg 08/20/17 23:28 Morphine Sulfate (Inj) IV Q4HR PRN Severe Pain Multivitamins 1 each 08/21/17 12:00 Theragran PO DAILY@1200 [facility] Mupirocin 1 applic 08/20/17 23:30 Bactroban Oint TOPICAL DAILY PRN Rash Naloxone HCl 0.2 mg 08/20/17 23:28 Narcan IV Q2M PRN Opioid Reversal Naproxen 500 mg 08/20/17 23:30 Naprosyn PO BID PRN Pain Ondansetron HCl 4 mg 08/20/17 23:28 Zofran IVP Q8HR PRN Nausea And Vomiting Oxycodone/Acetaminophen 1 each 08/20/17 23:30 08/21/17 01:21 Percocet 7.5-325 PO 1 each Q4H PRN Administration Pain Pantoprazole Sodium 40 mg 08/21/17 09:00 Protonix PO BID [facility] Paroxetine HCl 20 mg 08/21/17 21:00 Paxil PO HS [facility] Pregabalin 75 mg 08/21/17 00:00 08/21/17 01:21 Lyrica PO 75 mg TID [facility] Administration Senna 8.6 mg 08/20/17 23:30 Senokot PO BID PRN Constipation Zolpidem Tartrate 5 mg 08/20/17 23:30 Ambien PO HS PRN Insomnia Intake and Output 08/20/17 08/21/17 08/21/17 22:59 06:59 14:59 Other: Voiding Method Toilet Toilet # Voids 1 Weight 90.356 kg 08/20/17 21:57 08/20/17 21:57
[2017-08-21 09:51] LABS: Cholesterol 124 mg/dL (<200); HDL Cholesterol 38 mg/dL (40-60); LDL Cholesterol,Calculated 63 mg/dL (0-99); Triglycerides 114 mg/dL (<150)
[2017-08-21 10:06] LABS: Creatine Kinase 111 U/L (30-135)
[2017-08-21 10:19] LABS: Creatine Kinase MB 1.2 ng/mL (0.0-2.4); Troponin I <0.012 ng/mL (0.000-0.034)
--- NOTE | 2017-08-21 10:20 | P.CRDCN ---
History of Present Illness History of present illness: Mrs. Stanley is a pleasant 52-year-old female past medical history significant for hyperlipidemia, COPD, diabetes mellitus, GERD, anxiety and schizoaffective disorder. She is also a chronic smoaker of 1 pack per day and daily marijuana use. She denies history of coronary artery disease. She states she has followed with a road grader out of town in the past and was told there was no cardiac concerns and she hasn't been back. We have been asked to see her in consultation for chest pain. She states she was taking her medications last night and she felt as though they were getting stuck in her throat. She then started coughing and having tightness in her chest. The tightness in her chest was from shoulder to shoulder with shortness of breath, dizziness and racing heart. She denies nausea, vomiting or diaphoresis. She states she also had a similar episode the day prior and came to the ED for evaluation also. She was given a GI cocktail and ativan which seemed to help her throat and was sent home. She states she has had issues with her throat feeling tight with swallowing for 3 years after eating a chicken nugget that tasted like gasoline. She denies having exertional chest pain at home. EKG reveals sinus mechanism with no acute ST or T-wave abnormalities. Chest xray negative for an acute cardiopulmonary process. Laboratory data reviewed, involving 15.1, platelets 238, sodium 141, potassium 4.7, creatinine 0.7, AST 57, ALT 82, TSH 2.4, cardiac enzymes negative 3, d- dimer 0.57, LDL 63, HDL 38, triglycerides 114 a total cholesterol 124. Current cardiac medications include aspirin 162 mg daily, atorvastatin 20 mg daily, losartan 25 mg daily and she was recently on clonidine 0.1 mg at that time which has been discontinued for the previous few months. Review of Systems At the time of my exam: CONSTITUTIONAL: Denies fever. Denies chills. EYES: Denies blurred vision. Denies vision changes. Denies eye pain. EARS, NOSE, MOUTH & THROAT: Denies headache. Denies sore throat. Denies ear pain. CARDIOVASCULAR: Denies chest pain. Denies shortness of breath. Denies orthopnea. Denies PND. Denies palpitations. RESPIRATORY: Denies cough. GASTROINTESTINAL: Denies abdominal pain. Denies diarrhea. Denies constipation. Denies nausea. Denies vomiting. MUSCULOSKELETAL: Denies myalgias. INTEGUMENTARY: Denies pruitis. Denies rash. NEUROLOGIC: Denies numbness. Denies tingling. Denies weakness. PSYCHIATRIC: Denies anxiety. Denies depression. ENDOCRINE: Denies fatigue. Denies weight change. Denies polydipsia. Denies polyurina. GENITOURINARY: Denies burning, hematuria or urgency with micturation. HEMATOLOGIC: Denies history of anemia. Denies bleeding. Past Medical History Past Medical History: COPD, Diabetes Mellitus, GERD/Reflux, Hyperlipidemia Additional Past Medical History / Comment(s): back pain, gas & constipation, cervical spine stenosis;murmur as child, problems chewing & swallowing x 3 years, told in past she had a bad heart valve ,kidney stones, uti, "at times my heart feels like its fluttering like a butterfly", arthritis History of Any Multi-Drug Resistant Organisms: MRSA Date of last positivie culture/infection: 2015 MDRO Source:: nasal Past Surgical History: Section, Orthopedic Surgery Additional Past Surgical History / Comment(s): foot surgery as a child Past Anesthesia/Blood Transfusion Reactions: Motion Sickness Past Psychological History: ADD/ADHD, Anxiety, Bipolar, Depression, Panic Disorder, PTSD, Schizoaffective Disorder Smoking Status: Current every day smoker Past Alcohol Use History: Rare Additional Past Alcohol Use History / Comment(s): smoking: started 1980, smokes 1 PPD Past Drug Use History: None Reported - Past Family History Mother History Unknown: Yes Family Medical History: Cancer, COPD, Diabetes Mellitus, Pneumonia Additional Family Medical History / Comment(s): .i know she has copd because she 's on oxygen",mental illness Father Family Medical History: Cancer Additional Family Medical History / Comment(s): lung/bone cancer Medications and Allergies Home Medications Medication Instructions Recorded Confirmed Type ALPRAZolam [Xanax] 0.5 mg PO BID PRN 04/25/15 08/21/17 History Cholecalciferol [Vitamin D3] 5,000 unit PO QAM 04/25/15 08/21/17 History Loratadine [Claritin] 10 mg PO HS 04/25/15 08/21/17 History Mupirocin 2% Oint [Bactroban 2% 1 applic TOPICAL DAILY PRN 04/25/15 08/21/17 History Oint] Sennosides [Senokot] 8.6 mg PO BID PRN 04/25/15 08/21/17 History oxyCODONE-APAP 7.5-325MG [Percocet 1 tab PO Q4H PRN 04/25/15 08/21/17 History 7.5-325 mg] Aspirin [Adult Low Dose Aspirin EC] 162 mg PO HS 06/13/15 08/21/17 History Beclomethasone Dipropionate [Qvar 1 puff INHALATION RT-BID 06/13/15 08/21/17 History 40 mcg/puff] Cyclobenzaprine [Flexeril] 10 mg PO TID PRN 09/04/15 08/21/17 History PARoxetine HCL [Paxil] 30 mg PO HS 12/14/15 08/21/17 History Pregabalin [Lyrica] 75 mg PO TID 01/10/16 08/21/17 History Zolpidem [Ambien] 5 mg PO HS PRN 01/10/16 08/21/17 History Albuterol Inhaler [Ventolin Hfa 2 puff INHALATION RT-TID PRN 01/12/16 08/21/17 History Inhaler] metFORMIN HCL [Metformin HCl] 500 mg PO DAILY 07/31/16 08/21/17 History Bisacodyl [Dulcolax] 5 mg PO DAILY PRN 04/06/17 08/21/17 History Clotrimazole/Betameth Cream 1 applicate TOPICAL DAILY PRN 04/06/17 08/21/17 History [Lotrisone] Multivit with Calcium,Iron,Min 1 each PO DAILY 04/06/17 08/21/17 History [Women's Multivitamin] Naproxen 500 mg PO BID PRN 04/06/17 08/21/17 History Pantoprazole [Protonix] 40 mg PO BID 04/06/17 08/21/17 History Albuterol Sulfate [Proair Hfa] 1 - 2 puff INHALATION Q6HR PRN 08/21/17 08/21/17 History Triamcinolone 0.5% Cream [Kenalog 1 applic TOPICAL TID 08/21/17 08/21/17 History 0.5% Cream] Allergies Allergy/AdvReac Type Severity Reaction Status Date / Time codeine Allergy Rash/Hives Verified 08/21/17 00:42 Sulfa (Sulfonamide Allergy Rash/Hives Verified 08/21/17 00:42 Antibiotics) Physical Exam Vitals: Vital Signs Temp Pulse Pulse Resp BP BP Pulse Ox 08/21/17 03:29 97.6 F 60 18 147/87 92 L 08/21/17 03:03 18 08/21/17 00:08 97.9 F 88 18 149/79 97 08/21/17 00:00 18 08/20/17 23:46 98.4 F 08/20/17 23:19 80 18 151/84 95 08/20/17 22:45 77 20 146/71 97 08/20/17 22:01 90 08/20/17 21:00 98.4 F 90 18 165/90 98 Intake and Output 08/20/17 08/21/17 08/21/17 22:59 06:59 14:59 Other: Voiding Method Toilet Weight 90.356 kg Blood pressure 137/69 heart rate 52 afebrile maintaining oxygen saturation on room air GENERAL: This is a 52-year-old occasion female in no apparent distress at the time of my examination. Obese. Appears older than stated age. HEENT: Head is atraumatic, normocephalic. Pupils are equal, round. Sclerae anicteric. Conjunctivae are clear. Mucous membranes of the mouth are moist. Neck is supple. There is no jugular venous distention. No carotid bruit is heard. LUNGS: Clear to auscultation no wheezes, rales or rhonchi. No chest wall tenderness is noted on palpation or with deep breathing. Diminished bilaterally. HEART: Regular rate and rhythm without murmurs, rubs or gallops. S1 and S2 heard. ABDOMEN: Soft, nontender. Bowel sounds are heard. No organomegaly noted. EXTREMITIES: No evidence of peripheral edema and no calf tenderness noted. VASCULAR: Radial and dorsalis pedis pulses palpated, no evidence of clubbing. NEUROLOGIC: Patient is awake, alert and oriented x3. Results 08/20/17 21:57 08/20/17 21:57 Cardiac Enzymes 08/20/17 08/20/17 08/21/17 Range/Units 21:57 21:57 03:53 AST 57 H (14-36) U/L CK-MB (CK-2) 1.3 (0.0-2.4) ng/mL Troponin I 0.033 <0.012 (0.000-0.034) ng/mL CBC 08/20/17 Range/Units 21:57 WBC 8.8 (3.8-10.6) k/uL RBC 5.11 (3.80-5.40) m/uL Hgb 15.1 (11.4-16.0) gm/dL Hct 45.2 (34.0-46.0) % Plt Count 238 (150-450) k/uL Comprehensive Metabolic Panel 08/20/17 Range/Units 21:57 Sodium 141 (137-145) mmol/L Potassium 4.7 (3.5-5.1) mmol/L Chloride 105 (98-107) mmol/L Carbon Dioxide 27 (22-30) mmol/L BUN 9 (7-17) mg/dL Creatinine 0.70 (0.52-1.04) mg/dL Glucose 233 H (74-99) mg/dL Calcium 9.8 (8.4-10.2) mg/dL AST 57 H (14-36) U/L ALT 82 H (9-52) U/L Alkaline Phosphatase 118 (38-126) U/L Total Protein 7.7 (6.3-8.2) g/dL Albumin 4.5 (3.5-5.0) g/dL Current Medications Generic Name Dose Route Start Last Admin Trade Name Freq PRN Reason Stop Dose Admin Acetaminophen 650 mg 08/20/17 23:28 Tylenol Tab PO Q6HR PRN Mild Pain or Fever > 100.5 Albuterol Sulfate 2.5 mg 08/20/17 23:30 Ventolin Nebulized INHALATION RT-TID PRN Shortness Of Breath Alprazolam 0.25 mg 08/20/17 23:28 08/21/17 01:21 Xanax PO 0.25 mg Q6HR PRN Administration Anxiety Aspirin 162 mg 08/21/17 21:00 Aspirin PO HS ЕЛЕНА Atorvastatin Calcium 20 mg 08/21/17 21:00 Lipitor PO HS ЕЛЕНА Bisacodyl 5 mg 08/20/17 23:30 Dulcolax PO DAILY PRN Constipation Budesonide 0.5 mg 08/21/17 08:00 Pulmicort INHALATION RT-BID ЕЛЕНА Clonidine 0.1 mg 08/21/17 21:00 Catapres PO HS [facility] Cyclobenzaprine HCl 10 mg 08/20/17 23:30 Flexeril PO TID PRN Pain Sodium Chloride 1,000 mls @ 100 mls/hr 08/20/17 23:30 08/21/17 01:24 Saline 0.9% IV 100 mls/hr .Q10H [facility] Administration Ibuprofen 400 mg 08/20/17 23:28 Motrin PO Q6HR PRN Mild Pain or Fever > 100.5 Ketorolac Tromethamine 30 mg 08/20/17 23:28 Toradol IVP 08/25/17 23:29 Q6HR PRN Moderate Pain Loratadine 10 mg 08/21/17 21:00 Claritin PO HS [facility] Losartan Potassium 25 mg 08/21/17 21:00 Cozaar PO HS [facility] Metformin HCl 500 mg 08/21/17 09:00 Glucophage PO DAILY [facility] Morphine Sulfate 4 mg 08/20/17 23:28 Morphine Sulfate (Inj) IV Q4HR PRN Severe Pain Multivitamins 1 each 08/21/17 12:00 Theragran PO DAILY@1200 [facility] Mupirocin 1 applic 08/20/17 23:30 Bactroban Oint TOPICAL DAILY PRN Rash Naloxone HCl 0.2 mg 08/20/17 23:28 Narcan IV Q2M PRN Opioid Reversal Naproxen 500 mg 08/20/17 23:30 Naprosyn PO BID PRN Pain Ondansetron HCl 4 mg 08/20/17 23:28 Zofran IVP Q8HR PRN Nausea And Vomiting Oxycodone/Acetaminophen 1 each 08/20/17 23:30 08/21/17 01:21 Percocet 7.5-325 PO 1 each Q4H PRN Administration Pain Pantoprazole Sodium 40 mg 08/21/17 09:00 Protonix PO BID [facility] Paroxetine HCl 20 mg 08/21/17 21:00 Paxil PO HS [facility] Pregabalin 75 mg 08/21/17 00:00 08/21/17 01:21 Lyrica PO 75 mg TID [facility] Administration Senna 8.6 mg 08/20/17 23:30 Senokot PO BID PRN Constipation Zolpidem Tartrate 5 mg 07/12/18 23:30 Ambien PO HS PRN Insomnia Intake and Output 08/20/17 08/21/17 08/21/17 22:59 06:59 14:59 Other: Voiding Method Toilet Weight 90.356 kg 08/20/17 21:57 08/20/17 21:57 Assessment and Plan Assessment: ASSESSMENT Difficulty swallowing with subsequent shortness of breath, atypical chest pain and cough. An acute coronary event has been ruled out with no EKG evidence of ischemia and negative cardiac enzymes. COPD Hypertension Dyslipidemia Diabetes mellitus Chronic tobacco use Daily marijuana use PLAN Obtain 2-D echocardiogram and Doppler study to assess cardiac structure and function. An acute coronary event has been ruled out with no EKG evidence of ischemia and negative cardiac enzymes. Recommend swallow evaluation with GI specialist as an outpatient. Follow up with PC for mildly elevated LFT's on atorvastatin. Aspirin 81 mg daily dose. Plan of care has been discussed with the patient. Stable from a cardiac perspective. Tobacco and marijuana cessation recommended. Thank you kindly for this consultation. Nurse Practitioner note has been reviewed, I agree with a documented findings and plan of care. Patient was seen and examined.
--- NOTE | 2017-08-21 11:39 | ECHOF ---
Referral Reason:cp MEASUREMENTS -------- HEIGHT: 160.0 cm WEIGHT: 90.3 kg BP: 147/87 RVIDd: 3.4 cm (< 3.3) IVSd: 1.3 cm (0.6 - 1.1) LVIDd: 3.9 cm (3.9 - 5.3) LVPWd: 1.3 cm (0.6 - 1.1) IVSs: 1.7 cm LVIDs: 2.4 cm LVPWs: 1.9 cm LA Diam: 3.1 cm (2.7 - 3.8) LAESV Index (A-L): 17.43 ml/m Ao Diam: 3.4 cm (2.0 - 3.7) AV Cusp: 2.4 cm (1.5 - 2.6) MV EXCURSION: 9.761 mm (> 18.000) MV EF SLOPE: 85 mm/s (70 - 150) EPSS: 0.5 cm MV E Rick: 1.00 m/s MV DecT: 240 ms MV A Rick: 0.88 m/s MV E/A Ratio: 1.13 RAP: 5.00 mmHg RVSP: 29.26 mmHg FINDINGS -------- Resting bradycardia (HR<60bpm). This was a technically adequate study. The left ventricular size is normal. There is mild concentric left ventricular hypertrophy. Overa ll left ventricular systolic function is normal with, an EF between 60 - 65 %. The right ventricle is mildly enlarged. Normal LA size by volume 22+/-6 ml/m2. The right atrium is normal in size. The aortic valve was not well visualized. Trace to mild aortic regurgitation. Mild mitral regurgitation is present. Mild tricuspid regurgitation present. Right ventricular systolic pressure is normal at < 35 mmHg. Trace/mild (physiologic) pulmonic regurgitation. The aortic root size is normal. Normal inferior vena cava with normal inspiratory collapse consistent with estimated right atrial pre ssure of 5 mmHg. There is no pericardial effusion. CONCLUSIONS -------- 1. Resting bradycardia (HR<60bpm). 2. This was a technically adequate study. 3. The left ventricular size is normal. 4. There is mild concentric left ventricular hypertrophy. 5. Overall left ventricular systolic function is normal with, an EF between 60 - 65 %. 6. The right ventricle is mildly enlarged. 7. Normal LA size by volume 22+/-6 ml/m2. 8. The right atrium is normal in size. 9. The aortic valve was not well visualized. 10. Trace to mild aortic regurgitation. 11. Mild mitral regurgitation is present. 12. Mild tricuspid regurgitation present. 13. Right ventricular systolic pressure is normal at < 35 mmHg. 14. Trace/mild (physiologic) pulmonic regurgitation. 15. The aortic root size is normal. 16. Normal inferior vena cava with normal inspiratory collapse consistent with estimated right atrial pressure of 5 mmHg. 17. There is no pericardial effusion. AUTOMAT WATCHER: Klarissa Mcneal RDCS
[2017-08-21] MEDS ORDERED: MULTIVITAMINS, THERA 1 EACH TAB PO SCH (12:00)
[2017-08-21 12:06] LABS: Glucose,Whole Blood 193 mg/dL (75-99)
[2017-08-21 14:10] VITALS: BMI 35.2
[2017-08-21 15:03] LABS: Hemoglobin A1C 10.6 % (4.0-6.0)
[2017-08-21 16:51] LABS: Glucose,Whole Blood 212 mg/dL (75-99)
[2017-08-21 16:53] VITALS: BP 137/82; PULSE 61; TEMP 98
--- NOTE | 2017-08-21 18:07 | HP ---
HISTORY AND PHYSICAL HISTORY AND PHYSICAL AND DISCHARGE SUMMARY: DATE OF ADMISSION: 08/20/2017 DATE OF DISCHARGE: 08/21/2017 DATE OF SERVICE: 08/21/2017. PRESENTING COMPLAINT: Chest pain. HISTORY OF PRESENTING COMPLAINT: This is a 52-year-old patient of Dr. Susy Gooden. Chronic stable medical conditions include COPD, GERD, osteoarthritis and diabetes. Patient is a smoker. Around 6:00 yesterday patient was sitting. Patient felt she was clammy, became a bit short of breath, shaking, got some chest pressure, became very anxious, could not sit still. Episode lasted for a good 10 to 15 minutes before it settled down. Patient is a long- standing smoker, has a slight cough, occasional white sputum. When I saw the patient this morning, she was able to tolerate her breakfast. No trouble with that. Patient normally does not get chest pain with getting about. Cardiology was consulted from the ER. Patient does get anxious at times. REVIEW OF SYSTEMS: CONSTITUTIONAL: None. HEENT: None. RESPIRATORY: As above. CARDIOVASCULAR: As above. GASTROINTESTINAL: Heartburn. GENITOURINARY: None. MUSCULOSKELETAL: Chronic low back pain. DERMATOLOGICAL: None. HEMATOLOGICAL: None. LYMPHATICS: None. PSYCHIATRY: Anxious. NEUROLOGICAL: None. PAST MEDICAL HISTORY: 1. COPD. 2. GERD. 3. Diabetes. 4. Chronic low back pain. 5. Osteoarthritis. 6. Anxiety. 7. Some depression. PAST SURGICAL HISTORY: 1. . 2. Orthopedic surgery. PSYCH HISTORY: 1. ADHD. 2. Anxiety. 3. Bipolar. 4. PTSD. 5. Schizoaffective disorder. Has had some suicide attempts in the past. Currently not suicidal. SOCIAL HISTORY: Lives by herself. She is on disability. Has been smoking a pack a day for 37 years. Uses marijuana occasionally. FAMILY HISTORY: COPD and diabetes. HOME MEDICATIONS: 1. Metformin 500 mg p.o. b.i.d. 2. Kenalog 0.5% one application topically t.i.d. 3. Aspirin 162 mg p.o. at bedtime. 4. Xanax 0.5 p.o. b.i.d. p.r.n. 5. Vitamin D3 5000 units p.o. daily. 6. Dulcolax 5 mg p.o. daily p.r.n. 7. Qvar 1 puff b.i.d. 8. Claritin 10 mg at bedtime. 9. Flexeril 10 mg p.o. t.i.d. p.r.n. 10.Lotrisone 1 application topically daily p.r.n. 11.Bactroban 2% topically daily p.r.n. 12.Multivitamin 1 tablet p.o. daily. 13.Paxil 30 mg p.o. at bedtime. 14.Naproxen 500 mg p.o. b.i.d. p.r.n. 15.Lyrica 75 mg p.o. t.i.d. 16.Protonix 40 mg p.o. b.i.d. 17.Ambien 5 mg at bedtime p.r.n. 18.Senokot 8.6 mg p.o. b.i.d. p.r.n. 19.Percocet 1 tablet p.o. q.4 p.r.n. 20.ProAir HFA 1 or 2 puffs q.6 p.r.n. 21.Albuterol Ventolin HFA 2 puffs t.i.d. p.r.n. ALLERGIES: CODEINE and SULFA. PHYSICAL EXAMINATION: VITAL SIGNS ON PRESENTATION: Temperature 98.4, pulse 90, respiration 18, blood pressure 146/71, pulse ox 98% on room air. GENERAL APPEARANCE: Well built; BMI 35.3. Sitting up, comfortable. Was eating her breakfast. EYES: Pupils equal. Conjunctivae normal. HEENT: External appearance of nose and ears normal. Oral cavity normal. NECK: JVD not raised. Mass not palpable. RESPIRATORY: Effort normal. LUNGS: Slightly decreased breath sounds. CARDIOVASCULAR: First and second sounds normal. No edema. ABDOMEN: Soft, nontender. Liver and spleen not palpable. LYMPHATIC: No lymph node palpable in neck or axillae. PSYCHIATRY: Alert and oriented x3. Mood and affect anxious-appearing. NEUROLOGICAL: Pupils equal. Cranial nerves grossly intact. Power and sensation grossly intact. INVESTIGATIONS: White count 8.8, hemoglobin 15.1, potassium 4.7. Accu-Cheks are noted. TSH normal. Urine drug screen positive for benzodiazepine. Chest x-ray nil acute. EKG tracing interpreted by me; normal sinus rhythm. ASSESSMENT: 1. Episode of patient becoming short of breath, clammy, shaking, anxious, chest pressure. Most likely this was an acute panic attack. Cardiac cause appears to be less likely. Will get a cardiology opinion. 2. Chronic obstructive pulmonary disease in a current smoker. 3. Gastroesophageal reflux disease. 4. Diabetes mellitus, on oral hypoglycemic. 5. Primary osteoarthritis. 6. Bipolar disorder. 7. Chronic nicotine dependence. Patient is a cigarette smoker. 8. Obesity; body mass index 35.3. PLAN: Cardiology was consulted, who ordered a 2D echo that came back to be fine. Patient was seen by Dr. Washington and patient will be discharged home. Patient will be given a nicotine patch. Other home medications are resumed. Patient should follow up with her family doctor, Dr. Susy Gooden. This is both a history and physical and a discharge summary on this patient. MMODL / IJN: [id number] /
[2017-08-21] MEDS ORDERED: ASPIRIN 81 MG PO SCH ×2 (21:00)
[2017-08-21] MEDS ORDERED: ATORVASTATIN 20 MG TAB PO SCH (21:00)
[2017-08-21] MEDS ORDERED: cloNIDine HCL 0.1 MG TAB PO SCH (21:00)
[2017-08-21] MEDS ORDERED: LORATADINE 10 MG TAB PO SCH (21:00)
[2017-08-21] MEDS ORDERED: PARoxetine 20 MG TAB PO SCH (21:00)
[2017-08-21] MEDS ORDERED: PARoxetine 10 MG TAB PO SCH (21:00)
== END 2017-08-21 18:11 | disposition home or self-care (01) ==
LOC: EC 20:55 → 3OBS 23:04
PROVIDERS: ADMIT Hospitalist; ATTEND Hospitalist
DX: R06.02 Shortness of breath (principal); R23.1 Pallor; R07.89 Other chest pain; J44.9 Chronic obstructive pulmonary disease, unspecified; F41.0 Panic disorder [episodic paroxysmal anxiety]; F17.210 Nicotine dependence, cigarettes, uncomplicated; K21.9 Gastro-esophageal reflux disease without esophagitis; E11.9 Type 2 diabetes mellitus without complications; Z79.84 Long term (current) use of oral hypoglycemic drugs; M19.91 Primary osteoarthritis, unspecified site; F31.9 Bipolar disorder, unspecified; E66.9 Obesity, unspecified; Z68.35 Body mass index [BMI] 35.0-35.9, adult; R05 Cough; M54.5 Low back pain; G89.29 Other chronic pain; F90.9 Attention-deficit hyperactivity disorder, unspecified type; F43.10 Post-traumatic stress disorder, unspecified; F25.9 Schizoaffective disorder, unspecified; Z91.5 Personal history of self-harm; Z83.3 Family history of diabetes mellitus; Z82.5 Family history of asthma and other chronic lower respiratory diseases; Z79.82 Long term (current) use of aspirin; Z79.899 Other long term (current) drug therapy; Z79.51 Long term (current) use of inhaled steroids; Z88.2 Allergy status to sulfonamides; Z88.5 Allergy status to narcotic agent; I10 Essential (primary) hypertension; E78.5 Hyperlipidemia, unspecified; K59.00 Constipation, unspecified; M48.02 Spinal stenosis, cervical region; Z87.442 Personal history of urinary calculi; Z87.440 Personal history of urinary (tract) infections; Z80.8 Family history of malignant neoplasm of other organs or systems; Z80.1 Family history of malignant neoplasm of trachea, bronchus and lung; R74.8 Abnormal levels of other serum enzymes; Z86.14 Personal history of Methicillin resistant Staphylococcus aureus infection; R42 Dizziness and giddiness; R00.0 Tachycardia, unspecified; R13.10 Dysphagia, unspecified; F12.90 Cannabis use, unspecified, uncomplicated
CPT/HCPCS: 96361 ×3; 96374 ×2; 93005 ×2; 99282; 99285; 36415; 94640 ×2; 93306; 85379; 80061; 80053; 82550; 82553; 84443; 84484 ×2; 85025; 81001; 80306; 83036; 71046; G0378 ×2; C9113

== ENCOUNTER 2017-09-02 23:02 | Emergency (ER) | payer MEDICARE, OTHER ==
[2017-09-03] MEDS ORDERED: SODIUM CHLORIDE 0.9% 1,000 ML BAG ONE (00:09)
[2017-09-03 06:22] LABS: Partial Thromboplastin Time 24.2 sec (22.0-30.0); Prothrombin Time 9.9 sec (9.0-12.0)
[2017-09-03 06:30] LABS: ALT 74 U/L (9-52); AST 43 U/L (14-36); Albumin 4.2 g/dL (3.5-5.0); Alkaline Phosphatase 126 U/L (38-126); Anion Gap 8 mmol/L; Blood Urea Nitrogen 10 mg/dL (7-17); Calcium 9.4 mg/dL (8.4-10.2); Carbon Dioxide 27 mmol/L (22-30); Chloride 104 mmol/L (98-107); D-Dimer 0.63 mg/L FEU (<0.60); Glucose 151 mg/dL (74-99); Magnesium 1.8 mg/dL (1.6-2.3); Potassium 4.6 mmol/L (3.5-5.1); Sodium 139 mmol/L (137-145); Total Bilirubin 0.4 mg/dL (0.2-1.3); Total Protein 7.2 g/dL (6.3-8.2)
[2017-09-03 06:31] LABS: Basophils # (A) 0.1 k/uL (0-0.2); Basophils % (A) 1 %; Eosinophils # (A) 0.2 k/uL (0-0.7); Eosinophils % (A) 3 %; HCT 42.8 % (34.0-46.0); HGB 14.2 gm/dL (11.4-16.0); Lymphocytes # (A) 3.9 k/uL (1.0-4.8); Lymphocytes % (A) 45 %; MCH 29.8 pg (25.0-35.0); MCHC 33.1 g/dL (31.0-37.0); MCV 90.1 fL (80.0-100.0); Mean Platelet Volume 7.4; Monocytes # (A) 0.5 k/uL (0-1.0); Monocytes % (A) 6 %; Neutrophils # (A) 3.6 k/uL (1.3-7.7); Neutrophils % (A) 41 %; Platelet Count 204 k/uL (150-450); RBC 4.75 m/uL (3.80-5.40); RDW 14.2 % (11.5-15.5); WBC 8.7 k/uL (3.8-10.6)
[2017-09-03 06:32] LABS: Creatine Kinase 121 U/L (30-135); Creatine Kinase MB 1.3 ng/mL (0.0-2.4); Troponin I <0.012 ng/mL (0.000-0.034)
--- NOTE | 2017-09-03 11:20 | XR ---
EXAMINATION TYPE: XR chest 2V DATE OF EXAM: 09/03/2017 COMPARISON: Chest x-ray from 2 weeks ago. HISTORY: Increasing right-sided chest pain over last 2 days TECHNIQUE: Frontal and lateral views of the chest are obtained. FINDINGS: There is no focal air space opacity, pleural effusion, or pneumothorax seen. The cardiac silhouette size is within normal limits. The osseous structures are intact. IMPRESSION: No acute cardiopulmonary process. No significant change from prior.
== END 2017-09-03 01:18 | disposition home or self-care (01) ==
LOC: EC 23:02
DX: F41.9 Anxiety disorder, unspecified (principal); R07.9 Chest pain, unspecified; F17.200 Nicotine dependence, unspecified, uncomplicated; Z88.2 Allergy status to sulfonamides; Z88.5 Allergy status to narcotic agent
CPT/HCPCS: 36415; 71046; 80053; 82550; 82553; 83735; 83880; 84100; 84484; 85025; 85379; 85610; 85730; 93005; 96360; 99285

== ENCOUNTER 2017-09-29 09:29 | Emergency (ER) | payer MEDICARE, OTHER ==
[2017-09-29] MEDS ORDERED: SODIUM CHLORIDE 0.9% 1,000 ML IV STA (10:00)
--- NOTE | 2017-09-29 10:14 | ED ---
General Adult HPI - General Chief complaint: Urogenital Stated complaint: hematuria Time Seen by Provider: 09/29/17 09:47 Source: patient, RN notes reviewed Mode of arrival: ambulatory Limitations: no limitations - History of Present Illness Initial comments: 52-year-old female presented emergency from chief complaint of hematuria. Patient states that she woke up this morning went to the bathroom when she noticed there was large amount blood in her urine. She states that she waited an hour after drinking more fluids and continue. She does feel some pressure and lower abdomen. She has no history of kidney stone. Patient states that she 's never shook with hematuria is in the past. Patient denies any nausea, vomiting, diarrhea constipation. Denies any vaginal bleeding vaginal discharge. Patient states that she does take aspirin denies any Coumadin, Eliquis, Xarelto or Pradaxa - Related Data Home Medications Medication Instructions Recorded Confirmed ALPRAZolam [Xanax] 0.5 mg PO BID PRN 04/25/15 09/29/17 Mupirocin 2% Oint [Bactroban 2% 1 applic TOPICAL DAILY PRN 04/25/15 09/29/17 Oint] oxyCODONE-APAP 7.5-325MG [Percocet 1 tab PO Q4H PRN 04/25/15 09/29/17 7.5-325 mg] Aspirin [Adult Low Dose Aspirin EC] 162 mg PO HS 06/13/15 09/29/17 Beclomethasone Dipropionate [Qvar 1 puff INHALATION RT-BID 06/13/15 09/29/17 40 mcg/puff] Cyclobenzaprine [Flexeril] 10 mg PO TID PRN 09/04/15 09/29/17 PARoxetine HCL [Paxil] 30 mg PO HS 12/14/15 09/29/17 Pregabalin [Lyrica] 75 mg PO TID 01/10/16 09/29/17 Zolpidem [Ambien] 5 mg PO HS PRN 01/10/16 09/29/17 Albuterol Inhaler [Ventolin Hfa 2 puff INHALATION RT-TID PRN 01/12/16 09/29/17 Inhaler] metFORMIN HCL [Metformin HCl] 500 mg PO BID 07/31/16 09/29/17 Clotrimazole/Betameth Cream 1 applicate TOPICAL DAILY PRN 04/06/17 09/29/17 [Lotrisone] Multivit with Calcium,Iron,Min 1 each PO DAILY 04/06/17 09/29/17 [Women's Multivitamin] Naproxen 500 mg PO BID PRN 04/06/17 09/29/17 Pantoprazole [Protonix] 40 mg PO BID 04/06/17 09/29/17 Albuterol Sulfate [Proair Hfa] 1 - 2 puff INHALATION RT-Q6H PRN 08/21/17 Triamcinolone 0.5% Cream [Kenalog 1 applic TOPICAL TID 08/21/17 09/29/17 0.5% Cream] Biotin 5 mg PO DAILY 09/29/17 09/29/17 Previous Rx's Medication Instructions Recorded Ciprofloxacin HCl [Cipro] 500 mg PO Q12HR #14 tablet 09/29/17 Allergies Allergy/AdvReac Type Severity Reaction Status Date / Time codeine Allergy Rash/Hives Verified 09/29/17 10:04 Sulfa (Sulfonamide Allergy Rash/Hives Verified 09/29/17 10:04 Antibiotics) Review of Systems ROS Statement: Those systems with pertinent positive or pertinent negative responses have been documented in the HPI. ROS Other: All systems not noted in ROS Statement are negative. Past Medical History Past Medical History: COPD, Diabetes Mellitus, GERD/Reflux, Hyperlipidemia Additional Past Medical History / Comment(s): back pain, gas & constipation, cervical spine stenosis;murmur as child, problems chewing & swallowing x 3 years, told in past she had a bad heart valve ,kidney stones, uti, "at times my heart feels like its fluttering like a butterfly", arthritis History of Any Multi-Drug Resistant Organisms: MRSA Date of last positivie culture/infection: 2015 MDRO Source:: nasal Past Surgical History: Section, Orthopedic Surgery Additional Past Surgical History / Comment(s): foot surgery as a child Past Anesthesia/Blood Transfusion Reactions: Motion Sickness Past Psychological History: ADD/ADHD, Anxiety, Bipolar, Depression, Panic Disorder, PTSD, Schizoaffective Disorder Smoking Status: Current every day smoker Past Alcohol Use History: Rare Past Drug Use History: None Reported - Past Family History Mother History Unknown: Yes Family Medical History: Cancer, COPD, Diabetes Mellitus, Pneumonia Additional Family Medical History / Comment(s): .i know she has copd because she 's on oxygen",mental illness Father Family Medical History: Cancer Additional Family Medical History / Comment(s): lung/bone cancer General Exam Limitations: no limitations General appearance: alert, in no apparent distress Head exam: Present: atraumatic, normocephalic, normal inspection Neck exam: Present: normal inspection, full ROM. Absent: tenderness, meningismus, lymphadenopathy Respiratory exam: Present: normal lung sounds bilaterally. Absent: respiratory distress, wheezes, rales, rhonchi, stridor Cardiovascular Exam: Present: regular rate, normal rhythm, normal heart sounds. Absent: systolic murmur, diastolic murmur, rubs, gallop, clicks GI/Abdominal exam: Present: soft, tenderness (Mild suprapubic), normal bowel sounds. Absent: distended, guarding, rebound, rigid Back exam: Absent: CVA tenderness (R), CVA tenderness (L) Skin exam: Present: warm, dry, intact, normal color. Absent: rash Course Vital Signs 09/29/17 09/29/17 09:41 10:26 Temperature 98.7 F 98.1 F Pulse Rate 90 86 Respiratory 18 16 Rate Blood Pressure 138/71 O2 Sat by Pulse 96 96 Oximetry Medical Decision Making - Medical Decision Making 52-year-old female presented for hematuria. Patient has hemorrhagic cystitis. Patient had normal CT no evidence stone, bladder renal mass. Patient was hydrated given Rocephin will be discharged on ciprofloxacin. - Lab Data Result diagrams: 09/29/17 10:16 09/29/17 10:16 Lab Results 09/29/17 09/29/17 09/29/17 Range/Units 10:16 10:16 10:16 WBC 10.9 H (3.8-10.6) k/uL RBC 5.18 (3.80-5.40) m/uL Hgb 15.4 (11.4-16.0) gm/dL Hct 45.8 (34.0-46.0) % MCV 88.5 (80.0-100.0) fL MCH 29.7 (25.0-35.0) pg MCHC 33.6 (31.0-37.0) g/dL RDW 13.9 (11.5-15.5) % Plt Count 248 (150-450) k/uL Neutrophils % 60 % Lymphocytes % 27 % Monocytes % 8 % Eosinophils % 2 % Basophils % 1 % Neutrophils # 6.5 (1.3-7.7) k/uL Lymphocytes # 2.9 (1.0-4.8) k/uL Monocytes # 0.9 (0-1.0) k/uL Eosinophils # 0.2 (0-0.7) k/uL Basophils # 0.1 (0-0.2) k/uL PT 9.9 (9.0-12.0) sec INR 1.0 (<1.2) APTT 24.6 (22.0-30.0) sec Sodium 140 (137-145) mmol/L Potassium 4.6 (3.5-5.1) mmol/L Chloride 106 (98-107) mmol/L Carbon Dioxide 24 (22-30) mmol/L Anion Gap 10 mmol/L BUN 11 (7-17) mg/dL Creatinine 0.67 (0.52-1.04) mg/dL Est GFR (CKD-EPI)AfAm >90 (>60 ml/min/1.73 sqM) Est GFR (CKD-EPI)NonAf >90 (>60 ml/min/1.73 sqM) Glucose 126 H (74-99) mg/dL Calcium 9.5 (8.4-10.2) mg/dL Total Bilirubin 0.5 (0.2-1.3) mg/dL AST 49 H (14-36) U/L ALT 58 H (9-52) U/L Alkaline Phosphatase 110 (38-126) U/L Total Protein 7.7 (6.3-8.2) g/dL Albumin 4.3 (3.5-5.0) g/dL Amylase 55 (30-110) U/L Lipase 323 H (23-300) U/L Urine Color Urine Appearance (Clear) Urine pH (5.0-8.0) Ur Specific [place] (1.001-1.035) Urine Protein (Negative) Urine Glucose (UA) (Negative) Urine Ketones (Negative) Urine Blood (Negative) Urine Nitrite (Negative) Urine Bilirubin (Negative) Urine Urobilinogen (<2.0) mg/dL Ur Leukocyte Esterase (Negative) Urine RBC (0-5) /hpf Urine WBC (0-5) /hpf Urine Bacteria (None) /hpf Urine Mucus (None) /hpf 09/29/17 Range/Units 10:30 WBC (3.8-10.6) k/uL RBC (3.80-5.40) m/uL Hgb (11.4-16.0) gm/dL Hct (34.0-46.0) % MCV (80.0-100.0) fL MCH (25.0-35.0) pg MCHC (31.0-37.0) g/dL RDW (11.5-15.5) % Plt Count (150-450) k/uL Neutrophils % % Lymphocytes % % Monocytes % % Eosinophils % % Basophils % % Neutrophils # (1.3-7.7) k/uL Lymphocytes # (1.0-4.8) k/uL Monocytes # (0-1.0) k/uL Eosinophils # (0-0.7) k/uL Basophils # (0-0.2) k/uL PT (9.0-12.0) sec INR (<1.2) APTT (22.0-30.0) sec Sodium (137-145) mmol/L Potassium (3.5-5.1) mmol/L Chloride (98-107) mmol/L Carbon Dioxide (22-30) mmol/L Anion Gap mmol/L BUN (7-17) mg/dL Creatinine (0.52-1.04) mg/dL Est GFR (CKD-EPI)AfAm (>60 ml/min/1.73 sqM) Est GFR (CKD-EPI)NonAf (>60 ml/min/1.73 sqM) Glucose (74-99) mg/dL Calcium (8.4-10.2) mg/dL Total Bilirubin (0.2-1.3) mg/dL AST (14-36) U/L ALT (9-52) U/L Alkaline Phosphatase (38-126) U/L Total Protein (6.3-8.2) g/dL Albumin (3.5-5.0) g/dL Amylase (30-110) U/L Lipase (23-300) U/L Urine Color Dark Brown Urine Appearance Turbid H (Clear) Urine pH 5.5 (5.0-8.0) Ur Specific [place] 1.017 (1.001-1.035) Urine Protein 1+ H (Negative) Urine Glucose (UA) Negative (Negative) Urine Ketones Negative (Negative) Urine Blood Large H (Negative) Urine Nitrite Positive H (Negative) Urine Bilirubin Negative (Negative) Urine Urobilinogen <2.0 (<2.0) mg/dL Ur Leukocyte Esterase Large H (Negative) Urine RBC >182 H (0-5) /hpf Urine WBC >182 H (0-5) /hpf Urine Bacteria Rare H (None) /hpf Urine Mucus Occasional H (None) /hpf Disposition Clinical Impression: Hemorrhagic cystitis Disposition: HOME SELF-CARE Condition: Stable Instructions: Urinary Tract Infection in Women (ED) Additional Instructions: Please return to the Emergency Department if symptoms worsen or any other concerns. Prescriptions: Ciprofloxacin HCl [Cipro] 500 mg PO Q12HR #14 tablet Is patient prescribed a controlled substance at d/c from ED?: No Referrals: Susy Gooden MD [Primary Care Provider] - 1-2 days Time of Disposition: 11:20
[2017-09-29 10:53] LABS: Basophils # (A) 0.1 k/uL (0-0.2); Basophils % (A) 1 %; Eosinophils # (A) 0.2 k/uL (0-0.7); Eosinophils % (A) 2 %; HCT 45.8 % (34.0-46.0); HGB 15.4 gm/dL (11.4-16.0); Lymphocytes # (A) 2.9 k/uL (1.0-4.8); Lymphocytes % (A) 27 %; MCH 29.7 pg (25.0-35.0); MCHC 33.6 g/dL (31.0-37.0); MCV 88.5 fL (80.0-100.0); Mean Platelet Volume 7.7; Monocytes # (A) 0.9 k/uL (0-1.0); Monocytes % (A) 8 %; Neutrophils # (A) 6.5 k/uL (1.3-7.7); Neutrophils % (A) 60 %; Platelet Count 248 k/uL (150-450); RBC 5.18 m/uL (3.80-5.40); RDW 13.9 % (11.5-15.5); WBC 10.9 k/uL (3.8-10.6)
[2017-09-29 10:57] LABS: Prothrombin Time 9.9 sec (9.0-12.0)
[2017-09-29 10:58] LABS: Partial Thromboplastin Time 24.6 sec (22.0-30.0)
[2017-09-29 11:00] LABS: ALT 58 U/L (9-52); AST 49 U/L (14-36); Albumin 4.3 g/dL (3.5-5.0); Alkaline Phosphatase 110 U/L (38-126); Amylase 55 U/L (30-110); Anion Gap 10 mmol/L; Blood Urea Nitrogen 11 mg/dL (7-17); Calcium 9.5 mg/dL (8.4-10.2); Carbon Dioxide 24 mmol/L (22-30); Chloride 106 mmol/L (98-107); Glucose 126 mg/dL (74-99); Lipase 323 U/L (23-300); Potassium 4.6 mmol/L (3.5-5.1); Sodium 140 mmol/L (137-145); Total Bilirubin 0.5 mg/dL (0.2-1.3); Total Protein 7.7 g/dL (6.3-8.2)
[2017-09-29 11:05] LABS: Appearance,Urine Turbid (Clear); Bacteria,Urine Rare /hpf; Bilirubin,Urine Negative (Negative); Blood,Urine Large (Negative); Color,Urine Dark Brown; Glucose,Urine (UA) Negative (Negative); Ketones,Urine Negative (Negative); Leukocyte Esterase,Urine Large (Negative); Mucus,Urine Occasional /hpf; Nitrite,Urine Positive (Negative); PH, Urine 5.5 (5.0-8.0); Protein,Urine 1+ (Negative); RBC,Urine >182 /hpf (0-5); Urobilinogen,Urine <2.0 mg/dL (<2.0); WBC,Urine >182 /hpf (0-5)
[2017-09-29 11:09] LABS: Specific Gravity,Urine 1.017 (1.001-1.035)
--- NOTE | 2017-09-29 11:14 | CT ---
EXAMINATION TYPE: CT abdomen pelvis wo con DATE OF EXAM: 09/29/2017 HISTORY: Lt flank pain,hematuria CT DLP: 1595 mGycm. Automated Exposure Control for Dose Reduction was Utilized. TECHNIQUE: CT scan of the abdomen and pelvis is performed without oral or IV contrast. COMPARISON: CT abdomen and pelvis January 10, 2016 FINDINGS: Within the limitations of a non-contrast study, the following observations are made. Exam noted suboptimal due to patient motion, repeat imaging causing increased radiation exposure had to be performed. LUNG BASES: Visualized liver remains heterogeneous hypodense consistent with fatty infiltration. LIVER/GB: No significant abnormality is appreciated. PANCREAS: No significant abnormality is seen. SPLEEN: No significant abnormality is seen. ADRENALS: No significant abnormality is seen. KIDNEYS: No renal calculi or hydronephrosis is evident bilaterally. Bladder is poorly distended and t hus suboptimally evaluated but no suspicious intraluminal calculi are present. Some scattered phlebol iths are identified on course of the left ureter BOWEL: Stable small hiatal hernia axial image 13. There is low lying cecum into right pelvis. There i s no suspicious small or large bowel dilatation and mild fecal material is slightly prominent in the right colon and proximal transverse colon as well as portion of sigmoid rectal colon. GENITAL ORGANS: Retroverted uterus is present. LYMPH NODES: No greater than 1cm abdominal or pelvic lymph nodes are appreciated. OSSEOUS STRUCTURES: There is mild multilevel anterior and lateral spurring in the spine. OTHER: No significant additional abnormality is seen. IMPRESSION: No renal stones or hydronephrosis is seen bilaterally. Overall nonobstructive bowel gas p attern. Mild colonic fecal stasis particularly proximal colon.
[2017-09-29] MEDS ORDERED: cefTRIAXone IN SWFI 1,000 MG/10 ML SYRINGE IVP STA (11:20)
[2017-09-29 12:07] VITALS: BP 124/87; PULSE 87; RESP 18; TEMP 97
== END 2017-09-29 12:07 | disposition home or self-care (01) ==
LOC: EC 09:29
DX: N30.91 Cystitis, unspecified with hematuria (principal); J44.9 Chronic obstructive pulmonary disease, unspecified; E11.9 Type 2 diabetes mellitus without complications; K21.9 Gastro-esophageal reflux disease without esophagitis; E78.5 Hyperlipidemia, unspecified; F31.9 Bipolar disorder, unspecified; F41.0 Panic disorder [episodic paroxysmal anxiety]; F90.9 Attention-deficit hyperactivity disorder, unspecified type; F43.10 Post-traumatic stress disorder, unspecified; F25.9 Schizoaffective disorder, unspecified; F17.200 Nicotine dependence, unspecified, uncomplicated; Z79.51 Long term (current) use of inhaled steroids; Z79.82 Long term (current) use of aspirin; Z79.84 Long term (current) use of oral hypoglycemic drugs; Z79.899 Other long term (current) drug therapy; Z88.2 Allergy status to sulfonamides; Z88.5 Allergy status to narcotic agent
CPT/HCPCS: 36415; 80053; 82150; 83690; 85025; 85610; 85730; 81001; 74176; 99284; 96374; 96361; J0696

== ENCOUNTER → 2017-11-16 | Outpatient (CLI) | payer MEDICARE, OTHER ==
--- NOTE | 2017-11-16 16:11 | US ---
EXAMINATION TYPE: US bladder DATE OF EXAM: 11/16/2017 COMPARISON: NONE CLINICAL HISTORY: R33.9 RETENTION OF URINE. Post void volume. EXAM MEASUREMENTS: Post Void Residual Volume: 1.8 m Color Doppler performed to assess ureteral jets. Bilateral Jets seen Normal Post Void Residual (less than 50ml): Yes Limited visualization of bladder due to overlying bowel gas IMPRESSION: No abnormal post void residual. Urinary bladder is anechoic.
== END | disposition home or self-care (01) ==
LOC: RADUSWWP 13:54
PROVIDERS: ATTEND Internal Medicine
DX: R33.9 Retention of urine, unspecified (principal)
CPT/HCPCS: 76857

== ENCOUNTER → 2018-05-14 | Outpatient (CLI) | payer MEDICARE, OTHER ==
[2018-05-14 12:56] LABS: ALT 33 U/L (9-52); AST 24 U/L (14-36); Albumin 4.1 g/dL (3.5-5.0); Alkaline Phosphatase 101 U/L (38-126); Anion Gap 10 mmol/L; Blood Urea Nitrogen 8 mg/dL (7-17); Calcium 9.5 mg/dL (8.4-10.2); Carbon Dioxide 26 mmol/L (22-30); Chloride 105 mmol/L (98-107); Cholesterol 104 mg/dL (<200); Glucose 121 mg/dL (74-99); HDL Cholesterol 36 mg/dL (40-60); LDL Cholesterol,Calculated 42 mg/dL (0-99); Potassium 4.1 mmol/L (3.5-5.1); Sodium 141 mmol/L (137-145); Total Bilirubin 0.4 mg/dL (0.2-1.3); Total Protein 7.1 g/dL (6.3-8.2); Triglycerides 129 mg/dL (<150)
[2018-05-14 17:55] LABS: Hemoglobin A1C 8.9 % (4.0-6.0)
--- NOTE | 2018-05-17 11:49 | MM ---
Reason for exam: screening (asymptomatic). Last mammogram was performed 1 year ago. History: Patient is postmenopausal. Physical Findings: A clinical breast exam by your physician is recommended on an annual basis and results should be correlated with mammographic findings. MG 3D Screening Mammo W/Cad Bilateral CC and MLO view(s) were taken. Prior study comparison: May 07, 2017, bilateral MG 3d screening mammo w/cad. The breast tissue is heterogeneously dense. This may lower the sensitivity of mammography. There is no discrete abnormality. No significant changes when compared with prior studies. ASSESSMENT: Negative, BI-RAD 1 RECOMMENDATION: Routine screening mammogram of both breasts in 1 year.
== END | disposition home or self-care (01) ==
LOC: RADMAMWWP 10:50
PROVIDERS: ATTEND Internal Medicine
DX: Z12.31 Encounter for screening mammogram for malignant neoplasm of breast (principal); N94.10 Unspecified dyspareunia; E78.5 Hyperlipidemia, unspecified; E55.9 Vitamin D deficiency, unspecified; E11.9 Type 2 diabetes mellitus without complications
CPT/HCPCS: 77063; 77067; 80053; 80061; 82043; 82306; 82570; 83036

== ENCOUNTER 2019-03-27 23:28 | Emergency (ER) | payer MEDICARE, OTHER ==
[2019-03-28] MEDS ORDERED: guaiFENesin-DM 600/30MG 1 EACH TAB.ER.12H PO STA (00:08)
[2019-03-28] MEDS ORDERED: ALBUTEROL NEBULIZED 2.5 MG/3 ML INHALATION STA (00:08)
[2019-03-28] MEDS ORDERED: methylPREDNISolone SOD SUCCI 125 MG/2 ML VIAL IM ONE (00:08)
[2019-03-28] MEDS ORDERED: IPRATROPIUM 0.5 MG/2.5 ML NEBU INHALATION STA (00:08)
[2019-03-28] MEDS ORDERED: IPRATROPIUM-ALBUTEROL 3 ML NEB INHALATION STA (01:01)
[2019-03-28] MEDS ORDERED: ALBUTEROL NEB (CONC) 2.5 MG/0.5 ML INHALATION ONE (01:06)
--- NOTE | 2019-03-28 01:06 | XR ---
EXAMINATION TYPE: XR chest 2V DATE OF EXAM: 03/28/2019 COMPARISON: 09/03/2017 HISTORY: Cough TECHNIQUE: FINDINGS: Heart and mediastinum are normal. Lungs are clear. Diaphragm is normal. Bony thorax is inta ct. IMPRESSION: Normal chest. No change.
[2019-03-28] MEDS ORDERED: ALBUTEROL NEB (CONC) 2.5 MG/0.5 ML INHALATION STA (01:14)
[2019-03-28] MEDS ORDERED: ACETAMINOPHEN TAB 500 MG TAB PO STA (01:48)
--- NOTE | 2019-03-28 01:48 | ED ---
General Adult HPI - General Chief complaint: Upper Respiratory Infection Stated complaint: URI Time Seen by Provider: 03/28/19 00:00 Source: patient Mode of arrival: ambulatory Limitations: no limitations - History of Present Illness Initial comments: 53-year-old female patient presents to the emergency department today for evaluation of cough, congestion, shortness of breath. Patient states she's been sick for the last 3-4 days with symptoms. Patient states her symptoms are worsening. States she has had hot and cold flashes. She states she has had mild throat discomfort. States she is coughing up white sputum. Denies any hemoptysis. Patient does admit to smoking cigarettes and having COPD. She does use Qvar and albuterol at home. Patient states not helping her symptoms. She states she was taking [id number] Tussend for symptom relief which doesn't seem to be helping. She did not receive influenza vaccine this season. Patient denies any recent rash, abdominal pain, nausea, vomiting, diarrhea, constipation, back pain, numbness, tingling, dizziness, weakness, hematuria, dysuria, urinary urgency, urinary frequency, headache, visual changes, or any other complaints. - Related Data Home Medications Medication Instructions Recorded Confirmed ALPRAZolam [Xanax] 0.5 mg PO BID PRN 04/25/15 09/29/17 Mupirocin 2% Oint [Bactroban 2% 1 applic TOPICAL DAILY PRN 04/25/15 09/29/17 Oint] oxyCODONE-APAP 7.5-325MG [Percocet 1 tab PO Q4H PRN 04/25/15 09/29/17 7.5-325 mg] Aspirin [Adult Low Dose Aspirin EC] 162 mg PO HS 06/13/15 09/29/17 Beclomethasone Dipropionate [Qvar 1 puff INHALATION RT-BID 06/13/15 09/29/17 40 mcg/puff] Cyclobenzaprine [Flexeril] 10 mg PO TID PRN 09/04/15 09/29/17 PARoxetine HCL [Paxil] 30 mg PO HS 12/14/15 09/29/17 Pregabalin [Lyrica] 75 mg PO TID 01/10/16 09/29/17 Zolpidem [Ambien] 5 mg PO HS PRN 01/10/16 09/29/17 Albuterol Inhaler [Ventolin Hfa 2 puff INHALATION RT-TID PRN 01/12/16 09/29/17 Inhaler] metFORMIN HCL [Metformin HCl] 500 mg PO BID 07/31/16 09/29/17 Clotrimazole/Betameth Cream 1 applicate TOPICAL DAILY PRN 04/06/17 09/29/17 [Lotrisone] Multivit with Calcium,Iron,Min 1 each PO DAILY 04/06/17 09/29/17 [Women's Multivitamin] Naproxen 500 mg PO BID PRN 04/06/17 09/29/17 Pantoprazole [Protonix] 40 mg PO BID 04/06/17 09/29/17 Albuterol Sulfate [Proair Hfa] 1 - 2 puff INHALATION RT-Q6H PRN 08/21/17 09/29/17 Triamcinolone 0.5% Cream [Kenalog 1 applic TOPICAL TID 08/21/17 09/29/17 0.5% Cream] Biotin 5 mg PO DAILY 09/29/17 09/29/17 Previous Rx's Medication Instructions Recorded Ciprofloxacin HCl [Cipro] 500 mg PO Q12HR #14 tablet 09/29/17 guaiFENesin-DM 600/30MG [Mucinex 2 each PO Q12HR PRN #20 tab.er.12h 03/28/19 Dm] predniSONE 50 mg PO DAILY #5 tablet 03/28/19 Allergies Allergy/AdvReac Type Severity Reaction Status Date / Time codeine Allergy Rash/Hives Verified 03/27/19 23:54 Sulfa (Sulfonamide Allergy Rash/Hives Verified 03/27/19 23:54 Antibiotics) Review of Systems ROS Statement: Those systems with pertinent positive or pertinent negative responses have been documented in the HPI. ROS Other: All systems not noted in ROS Statement are negative. Past Medical History Past Medical History: COPD, Diabetes Mellitus, GERD/Reflux, Hyperlipidemia Additional Past Medical History / Comment(s): back pain, gas & constipation, cervical spine stenosis;murmur as child, problems chewing & swallowing x 3 years, told in past she had a bad heart valve ,kidney stones, uti, "at times my heart feels like its fluttering like a butterfly", arthritis History of Any Multi-Drug Resistant Organisms: MRSA Date of last positivie culture/infection: 2015 MDRO Source:: nasal Past Surgical History: Section, Orthopedic Surgery Additional Past Surgical History / Comment(s): foot surgery as a child Past Anesthesia/Blood Transfusion Reactions: Motion Sickness Past Psychological History: ADD/ADHD, Anxiety, Bipolar, Depression, Panic Disorder, PTSD, Schizoaffective Disorder Smoking Status: Current every day smoker Past Alcohol Use History: Rare Past Drug Use History: None Reported - Past Family History Mother History Unknown: Yes Family Medical History: Cancer, COPD, Diabetes Mellitus, Pneumonia Additional Family Medical History / Comment(s): .i know she has copd because she's on oxygen",mental illness Father Family Medical History: Cancer Additional Family Medical History / Comment(s): lung/bone cancer General Exam Limitations: no limitations General appearance: alert, in no apparent distress, other (This is a well- developed, well-nourished adult female patient in no acute distress. Vital signs upon presentation are temperature 100.0F, pulse 110, respirations 24, blood pressure 137/85, pulse ox 95% on room air) Eye exam: Present: normal appearance, PERRL, EOMI. Absent: scleral icterus, conjunctival injection, periorbital swelling ENT exam: Present: normal exam, normal oropharynx, mucous membranes moist Respiratory exam: Present: normal lung sounds bilaterally. Absent: respiratory distress, wheezes, rales, rhonchi, stridor Cardiovascular Exam: Present: normal rhythm, tachycardia, normal heart sounds. Absent: systolic murmur, diastolic murmur, rubs, gallop, clicks GI/Abdominal exam: Present: soft, normal bowel sounds. Absent: distended, tenderness, guarding, rebound, rigid Neurological exam: Present: alert, oriented X3, CN II-XII intact Psychiatric exam: Present: normal affect, normal mood Skin exam: Present: warm, dry, intact, normal color. Absent: rash Course Vital Signs 03/27/19 03/28/19 03/28/19 23:52 01:09 01:18 Temperature 100.0 F H Pulse Rate 110 H 110 H 108 H Respiratory 24 Rate Blood Pressure 137/85 O2 Sat by Pulse 95 Oximetry 03/28/19 02:11 Temperature 100 F H Pulse Rate 88 Respiratory 20 Rate Blood Pressure 132/74 O2 Sat by Pulse 95 Oximetry Medical Decision Making - Medical Decision Making 53-year-old female patient presents to the emergency department today for evaluation of cough, congestion, shortness of breath. Physical examination revealed clear equal lung sounds. Chest x-ray showed no acute cardio pulmonary process. Patient was positive for influenza A. Patient is out of the treatment window for use of Tamiflu. Given her history of COPD we will treat with steroid s and Mucinex DM. She is educated regarding fever management utilizing Tylenol Motrin. She is instructed to follow-up with her primary care physician for recheck in 1-2 days. Return parameters were discussed in detail. She verbalizes understanding and agrees with this plan. - Lab Data Lab Results 03/28/19 Range/Units 00:40 Influenza Type A RNA Detected H (Not Detectd) Influenza Type B (PCR) Not Detected (Not Detectd) - Radiology Data Radiology results: report reviewed, image reviewed Two-view x-ray of the chest is obtained. Report was reviewed in its entirety. Impression by Dr. Richards shows normal chest. No change. Disposition Clinical Impression: Influenza A Disposition: HOME SELF-CARE Condition: Good Instructions (If sedation given, give patient instructions): Influenza (ED) Additional Instructions: Take medication as directed. Alternate Tylenol and Motrin for fever control. Use inhalers as directed. Complete steroid prescription in full. Return to the emergency department immediately for any new, worsening, or concerning symptoms. Prescriptions: guaiFENesin-DM 600/30MG [Mucinex Dm] 2 each PO Q12HR PRN #20 tab.er.12h PRN Reason: Cough predniSONE 50 mg PO DAILY #5 tablet Is patient prescribed a controlled substance at d/c from ED?: No Referrals: uSsy Gooden MD [Primary Care Provider] - 1-2 days Time of Disposition: 01:48
[2019-03-28 02:17] VITALS: BP 132/74; PULSE 88; RESP 20; TEMP 100
== END 2019-03-28 02:18 | disposition home or self-care (01) ==
LOC: EC 23:28
DX: J10.1 Influenza due to other identified influenza virus with other respiratory manifestations (principal); J44.9 Chronic obstructive pulmonary disease, unspecified; E11.9 Type 2 diabetes mellitus without complications; K21.9 Gastro-esophageal reflux disease without esophagitis; F41.9 Anxiety disorder, unspecified; F25.0 Schizoaffective disorder, bipolar type; F25.1 Schizoaffective disorder, depressive type; F43.10 Post-traumatic stress disorder, unspecified; F17.200 Nicotine dependence, unspecified, uncomplicated; Z82.5 Family history of asthma and other chronic lower respiratory diseases; Z86.14 Personal history of Methicillin resistant Staphylococcus aureus infection; Z79.82 Long term (current) use of aspirin; Z79.51 Long term (current) use of inhaled steroids; Z79.84 Long term (current) use of oral hypoglycemic drugs; Z79.891 Long term (current) use of opiate analgesic; Z79.1 Long term (current) use of non-steroidal anti-inflammatories (NSAID); Z79.899 Other long term (current) drug therapy; Z88.5 Allergy status to narcotic agent; Z88.2 Allergy status to sulfonamides
CPT/HCPCS: 94640; 87502; 71046; 99285; 96372; J2930

== ENCOUNTER → 2019-08-31 | Outpatient (CLI) | payer MEDICARE, OTHER ==
[2019-08-31 16:55] LABS: African American GFR (CKD) 96.2 (60.0-200.0); Albumin 4.6 g/dL (3.80-4.90); Albumin/Globulin Ratio 1.84 (1.60-3.17); Anion Gap 7.3 mmol/L (4.00-12.00); BUN/Creat Ratio 16.25 Ratio (12.00-20.00); Calcium 9.8 mg/dL (8.7-10.3); Carbon Dioxide 26.7 mmol/L (21.6-31.8); Chol/HDL Ratio 3.08; Globulin 2.5 g/dL (1.6-3.3); LDL Cholesterol,Calculated 51.6 mg/dL (0.0-131.0); Potassium 3.8 mmol/L (3.5-5.5); Total Bilirubin 0.6 mg/dL (0.2-1.2); Total Protein 7.1 g/dL (6.2-8.2); VLDL Calculation 23.4 mg/dL (5.00-40.00)
[2019-08-31 20:18] LABS: Hemoglobin A1C 8.6 % (4.0-6.0)
== END | disposition home or self-care (01) ==
LOC: LABWHC1 10:54
PROVIDERS: ATTEND Internal Medicine
DX: E11.65 Type 2 diabetes mellitus with hyperglycemia (principal); E55.9 Vitamin D deficiency, unspecified; E78.5 Hyperlipidemia, unspecified
CPT/HCPCS: 36415; 80053; 80061; 82306; 83036; 84443

== ENCOUNTER → 2019-11-16 | Outpatient (CLI) | payer MEDICARE, OTHER ==
--- NOTE | 2019-11-22 12:06 | MM ---
Reason for exam: screening (asymptomatic). Last mammogram was performed 1 year and 6 months ago. History: Patient is postmenopausal. Physical Findings: A clinical breast exam by your physician is recommended on an annual basis and results should be correlated with mammographic findings. MG 3D Screening Mammo W/Cad Bilateral CC and MLO view(s) were taken. Prior study comparison: May 14, 2018, bilateral MG 3d screening mammo w/cad. May 07, 2017, bilateral MG 3d screening mammo w/cad. The breast tissue is heterogeneously dense. This may lower the sensitivity of mammography. Focal asymmetry upper outer right breast. ASSESSMENT: Incomplete: need additional imaging evaluation, BI-RAD 0 RECOMMENDATION: Special view mammogram of the right breast. If lesion persists on supplemental views, image directed ultrasound is recommended. [facility] will attempt to contact patient to return for supplemental views and ultrasound if indicated.
== END | disposition home or self-care (01) ==
LOC: RADMAMWWP 12:50
PROVIDERS: ATTEND Internal Medicine
DX: Z12.31 Encounter for screening mammogram for malignant neoplasm of breast (principal)
CPT/HCPCS: 77063; 77067

== ENCOUNTER → 2019-11-24 | Outpatient (CLI) | payer MEDICARE, OTHER ==
--- NOTE | 2019-11-25 10:17 | MM ---
Reason for exam: additional evaluation requested from abnormal screening. Last mammogram was performed less than 1 month ago. History: Patient is postmenopausal. Taking estrogen for 1 year beginning at age 53. Physical Findings: Nurse did not find any significant physical abnormalities on exam. MG 3D Work Up W/Cad RT Spot compression CC, spot compression MLO, and LM view(s) were taken of the right breast. Prior study comparison: November 16, 2019, bilateral MG 3d screening mammo w/cad. May 14, 2018, bilateral MG 3d screening mammo w/cad. The breast tissue is heterogeneously dense. This may lower the sensitivity of mammography. Distortion disperses on compression. These results were verbally communicated with the patient and result sheet given to the patient on 11/24/19. ASSESSMENT: Probably benign, BI-RAD 3 RECOMMENDATION: Follow-up diagnostic mammogram of the right breast in 6 months. Manage patient on a clinical basis.
== END | disposition home or self-care (01) ==
LOC: RADMAMWWP 12:52
PROVIDERS: ATTEND Internal Medicine
DX: R92.8 Other abnormal and inconclusive findings on diagnostic imaging of breast (principal)
CPT/HCPCS: 77065; G0279; 77061

== ENCOUNTER 2019-12-12 15:33 | Emergency (ER) | payer MEDICARE, OTHER ==
[2019-12-12 15:47] VITALS: BP 144/88; PULSE 85; RESP 20; TEMP 98
[2019-12-12] MEDS ORDERED: KETOROLAC 15 MG/ML 1 ML VIAL IM STA (16:44)
--- NOTE | 2019-12-12 17:01 | ED ---
Extremity Problem HPI - General Chief complaint: Extremity Problem,Nontraumatic Stated complaint: L Arm Injury Time Seen by Provider: 12/12/19 16:07 Source: patient Mode of arrival: ambulatory Limitations: no limitations - History of Present Illness Initial comments: Patient is a 54-year-old female presenting to the emergency Department with complaints of pain in her left elbow has been increasing over the past week. Patient states she saw her PCP for this and she is to start physical therapy and 1-2 weeks. Patient states she has been taking her regular pain medicines which include Percocet, applying ice the area without relief. She denies any fever, chills. She denies any falls or trauma to her arm. She denies any redness to the area. She has no further complaints at this time. - Related Data Home Medications Medication Instructions Recorded Confirmed ALPRAZolam [Xanax] 0.5 mg PO BID PRN 04/25/15 09/29/17 Mupirocin 2% Oint [Bactroban 2% 1 applic TOPICAL DAILY PRN 04/25/15 09/29/17 Oint] oxyCODONE-APAP 7.5-325MG [Percocet 1 tab PO Q4H PRN 04/25/15 09/29/17 7.5-325 mg] Aspirin [Adult Low Dose Aspirin EC] 162 mg PO HS 06/13/15 09/29/17 Beclomethasone Dipropionate [Qvar 1 puff INHALATION RT-BID 06/13/15 09/29/17 40 mcg/puff] Cyclobenzaprine [Flexeril] 10 mg PO TID PRN 09/04/15 09/29/17 PARoxetine HCL [Paxil] 30 mg PO HS 12/14/15 09/29/17 Pregabalin [Lyrica] 75 mg PO TID 01/10/16 09/29/17 Zolpidem [Ambien] 5 mg PO HS PRN 01/10/16 09/29/17 Albuterol Inhaler (Mhu) [Ventolin 2 puff INHALATION RT-TID PRN 01/12/16 09/29/17 Hfa Inhaler (Mhu)] metFORMIN HCL [Metformin HCl] 500 mg PO BID 07/31/16 09/29/17 Clotrimazole/Betameth Cream 1 applicate TOPICAL DAILY PRN 04/06/17 09/29/17 [Lotrisone] Multivit with Calcium,Iron,Min 1 each PO DAILY 04/06/17 09/29/17 [Women's Multivitamin] Naproxen 500 mg PO BID PRN 04/06/17 09/29/17 Pantoprazole [Protonix] 40 mg PO BID 04/06/17 09/29/17 Albuterol Sulfate [Proair Hfa] 1 - 2 puff INHALATION RT-Q6H PRN 08/21/17 09/29/17 Triamcinolone 0.5% Cream [Kenalog 1 applic TOPICAL TID 08/21/17 09/29/17 0.5% Cream] Biotin 5 mg PO DAILY 09/29/17 09/29/17 Previous Rx's Medication Instructions Recorded Ciprofloxacin HCl [Cipro] 500 mg PO Q12HR #14 tablet 09/29/17 guaiFENesin-DM 600/30MG [Mucinex 2 each PO Q12HR PRN #20 tab.er.12h 03/28/19 Dm] predniSONE 50 mg PO DAILY #5 tablet 03/28/19 Allergies Allergy/AdvReac Type Severity Reaction Status Date / Time codeine Allergy Rash/Hives Verified 12/12/19 15:47 Sulfa (Sulfonamide Allergy Rash/Hives Verified 12/12/19 15:47 Antibiotics) Review of Systems ROS Statement: Those systems with pertinent positive or pertinent negative responses have been documented in the HPI. ROS Other: All systems not noted in ROS Statement are negative. Past Medical History Past Medical History: COPD, Diabetes Mellitus, GERD/Reflux, Hyperlipidemia Additional Past Medical History / Comment(s): back pain, gas & constipation, cervical spine stenosis;murmur as child, problems chewing & swallowing x 3 years, told in past she had a bad heart valve ,kidney stones, uti, "at times my heart feels like its fluttering like a butterfly", arthritis History of Any Multi-Drug Resistant Organisms: MRSA Date of last positivie culture/infection: 2015 MDRO Source:: nasal Past Surgical History: Section, Orthopedic Surgery Additional Past Surgical History / Comment(s): foot surgery as a child Past Anesthesia/Blood Transfusion Reactions: Motion Sickness Past Psychological History: ADD/ADHD, Anxiety, Bipolar, Depression, Panic Disorder, PTSD, Schizoaffective Disorder Smoking Status: Current every day smoker Past Alcohol Use History: Rare Past Drug Use History: None Reported - Past Family History Mother History Unknown: Yes Family Medical History: Cancer, COPD, Diabetes Mellitus, Pneumonia Additional Family Medical History / Comment(s): .i know she has copd because she's on oxygen",mental illness Father Family Medical History: Cancer Additional Family Medical History / Comment(s): lung/bone cancer General Exam - General Exam Comments Initial Comments: GENERAL: Patient is well-developed and well-nourished. Patient is nontoxic and in no acu te distress. HEAD: Atraumatic, normocephalic. EYES: Pupils equal round and reactive to light, extraocular movements intact, sclera anicteric, conjunctiva are normal. Eyelids were unremarkable. ENT: TMs normal, nares patent, oropharynx clear without exudates. Moist mucous membranes. NECK: Normal range of motion, supple without lymphadenopathy or JVD. LUNGS: Unlabored respirations. Breath sounds clear to auscultation bilaterally and equal. No wheezes rales or rhonchi. HEART: Regular rate and rhythm without murmurs, rubs or gallops. ABDOMEN: Soft, nontender, normoactive bowel sounds. No guarding, no rebound. No masses appreciated. : Deferred MUSCULOSKELETAL: Pain with palpation over the left medial epicondylitis, increased pain with range of motion and resisted motion. There is no swelling, no signs of infection. No clubbing or cyanosis. NEUROLOGICAL: Patient is alert and oriented x 3. Motor and sensory are also intact. Cranial nerves II through XII grossly intact. Symmetrical smile. Normal speech, normal gait. PSYCH: Normal mood, normal affect. SKIN: Warm, Dry, normal turgor, no rashes or lesions noted. Limitations: no limitations Course Vital Signs 12/12/19 15:45 Temperature 98.0 F Pulse Rate 85 Respiratory 20 Rate Blood Pressure 144/88 O2 Sat by Pulse 99 Oximetry Medical Decision Making - Medical Decision Making Patient is a 54-year-old female here with left elbow pain has been increasing times one week. Her vitals are stable, afebrile. Her exam is consistent with medial epicondylitis of the left elbow. There is no signs of infection, no swelling. She has had no falls or trauma. I discussed the patient she needs to continue with anti-inflammatories, she already takes Percocets at home as well. She can apply heat and/or ice to the area. I will give her an Kuldip bandage to wrap around as well as a sling for comfort. She needs to follow up with physical therapy at her scheduled appointment. She is in agreement with this plan of care. She is stable for discharge. Disposition Clinical Impression: Medial epicondylitis, left elbow Disposition: HOME SELF-CARE Condition: Stable Instructions (If sedation given, give patient instructions): Tennis Elbow (ED) Additional Instructions: Please return to the Emergency Department if symptoms worsen or any other concerns. Continue with anti-inflammatories, heat and/or ice to the area, made worse sling for comfort. Follow-up with physical therapy as discussed. Is patient prescribed a controlled substance at d/c from ED?: No Referrals: Susy Gooden MD [Primary Care Provider] - 1-2 days
== END 2019-12-12 17:24 | disposition home or self-care (01) ==
LOC: EC 15:33
DX: M77.02 Medial epicondylitis, left elbow (principal); E11.9 Type 2 diabetes mellitus without complications; J44.9 Chronic obstructive pulmonary disease, unspecified; M19.90 Unspecified osteoarthritis, unspecified site; M54.9 Dorsalgia, unspecified; K21.9 Gastro-esophageal reflux disease without esophagitis; F43.10 Post-traumatic stress disorder, unspecified; F41.9 Anxiety disorder, unspecified; F32.9 Major depressive disorder, single episode, unspecified; F41.0 Panic disorder [episodic paroxysmal anxiety]; F17.200 Nicotine dependence, unspecified, uncomplicated; Z79.899 Other long term (current) drug therapy; Z79.51 Long term (current) use of inhaled steroids; Z79.82 Long term (current) use of aspirin; Z79.84 Long term (current) use of oral hypoglycemic drugs; Z88.5 Allergy status to narcotic agent; Z88.2 Allergy status to sulfonamides
CPT/HCPCS: 99283 ×2; 96372 ×2; J1885

== ENCOUNTER 2020-04-23 22:47 | Emergency (ER) | payer MEDICARE, OTHER ==
[2020-04-23 22:58] VITALS: TEMP 98.8
--- NOTE | 2020-04-23 23:22 | ED ---
Back Pain HPI - General Chief Complaint: Back Pain/Injury Stated Complaint: back pain Time Seen by Provider: 04/23/20 22:48 Source: patient, EMS Limitations: no limitations - History of Present Illness Initial Comments: This patient is a 54-year-old woman who presents to have evaluation to real complaints. First is that she has had about 3 days of right thoracic back pain that developed after she had been lifting a couple of different objects, including an oxygen concentrator. The patient noticed that she was having some aching in the right thoracic back, generally worse when she was bending or lifting. She states that it does get better when she takes a half of a pain pill that she is on. The patient states also that on the following day she started having an increase in cough. She does have a little bit of cough at baseline as she smokes and has mild COPD. She states that she also has a little bit of white, occasionally yellow sputum. No dyspnea. No leg pain or swelling. No change in urination. No chest pain. Not noted fever or chills. MD Complaint: back pain, back injury Onset/Timin -: days(s) Similar Symptoms Previously: No Place: home Radiation: none Severity: moderate Quality: dull, aching Consistency: constant Improves With: immobilization, medication Worsens With: medication Context: while lifting, turning/twisting Associated Symptoms: cough - Related Data Home Medications Medication Instructions Recorded Confirmed ALPRAZolam [Xanax] 0.5 mg PO BID PRN 04/25/15 09/29/17 Mupirocin 2% Oint [Bactroban 2% 1 applic TOPICAL DAILY PRN 04/25/15 09/29/17 Oint] oxyCODONE-APAP 7.5-325MG [Percocet 1 tab PO Q4H PRN 04/25/15 09/29/17 7.5-325 mg] Aspirin [Adult Low Dose Aspirin EC] 162 mg PO HS 06/13/15 09/29/17 Beclomethasone Dipropionate [Qvar 1 puff INHALATION RT-BID 06/13/15 09/29/17 40 mcg/puff] Cyclobenzaprine [Flexeril] 10 mg PO TID PRN 09/04/15 09/29/17 PARoxetine HCL [Paxil] 30 mg PO HS 12/14/15 09/29/17 Pregabalin [Lyrica] 75 mg PO TID 01/10/16 09/29/17 Zolpidem [Ambien] 5 mg PO HS PRN 01/10/16 09/29/17 Albuterol Inhaler (Mhu) [Ventolin 2 puff INHALATION RT-TID PRN 01/12/16 09/29/17 Hfa Inhaler (Mhu)] metFORMIN HCL [Metformin HCl] 500 mg PO BID 07/31/16 09/29/17 Clotrimazole/Betameth Cream 1 applicate TOPICAL DAILY PRN 04/06/17 09/29/17 [Lotrisone] Multivit with Calcium,Iron,Min 1 each PO DAILY 04/06/17 09/29/17 [Women's Multivitamin] Naproxen 500 mg PO BID PRN 04/06/17 09/29/17 Pantoprazole [Protonix] 40 mg PO BID 04/06/17 09/29/17 Albuterol Sulfate [Proair Hfa] 1 - 2 puff INHALATION RT-Q6H PRN 08/21/17 09/29/17 Triamcinolone 0.5% Cream [Kenalog 1 applic TOPICAL TID 08/21/17 09/29/17 0.5% Cream] Biotin 5 mg PO DAILY 09/29/17 09/29/17 Previous Rx's Medication Instructions Recorded Ciprofloxacin HCl [Cipro] 500 mg PO Q12HR #14 tablet 09/29/17 guaiFENesin-DM 600/30MG [Mucinex 2 each PO Q12HR PRN #20 tab.er.12h 03/28/19 Dm] predniSONE 50 mg PO DAILY #5 tablet 03/28/19 Methocarbamol [Robaxin-750] 750 mg PO TID PRN #30 tablet 04/24/20 Allergies Allergy/AdvReac Type Severity Reaction Status Date / Time codeine Allergy Rash/Hives Verified 04/23/20 22:58 Sulfa (Sulfonamide Allergy Rash/Hives Verified 04/23/20 22:58 Antibiotics) Review of Systems ROS Statement: Those systems with pertinent positive or pertinent negative responses have been documented in the HPI. ROS Other: All systems not noted in ROS Statement are negative. Constitutional: Denies: fever, chills ENT: Denies: congestion Respiratory: Reports: as per HPI, cough, wheezes. Denies: dyspnea, hemoptysis Cardiovascular: Denies: chest pain, palpitations, edema, syncope Gastrointestinal: Denies: abdominal pain, nausea, vomiting Genitourinary: Denies: dysuria, hematuria Musculoskeletal: Reports: as per HPI, back pain Skin: Denies: rash Neurological: Denies: headache, weakness Past Medical History Past Medical History: COPD, Diabetes Mellitus, GERD/Reflux, Hyperlipidemia Additional Past Medical History / Comment(s): back pain, gas & constipation, cervical spine stenosis;murmur as child, problems chewing & swallowing x 3 years, told in past she had a bad heart valve ,kidney stones, uti, "at times my heart feels like its fluttering like a butterfly", arthritis History of Any Multi-Drug Resistant Organisms: MRSA Date of last positivie culture/infection: 2016 MDRO Source:: nasal Past Surgical History: Section, Orthopedic Surgery Additional Past Surgical History / Comment(s): foot surgery as a child Past Anesthesia/Blood Transfusion Reactions: Motion Sickness Past Psychological History: ADD/ADHD, Anxiety, Bipolar, Depression, Panic Disorder, PTSD, Schizoaffective Disorder Smoking Status: Current every day smoker Past Alcohol Use History: Rare Past Drug Use History: None Reported - Past Family History Mother History Unknown: Yes Family Medical History: Cancer, COPD, Diabetes Mellitus, Pneumonia Additional Family Medical History / Comment(s): .i know she has copd because she's on oxygen",mental illness Father Family Medical History: Cancer Additional Family Medical History / Comment(s): lung/bone cancer General Exam Limitations: no limitations General appearance: alert, in no apparent distress Head exam: Present: atraumatic, normocephalic Eye exam: Present: normal appearance. Absent: scleral icterus, conjunctival in jection ENT exam: Present: normal oropharynx Neck exam: Present: normal inspection Respiratory exam: Present: wheezes. Absent: respiratory distress, rales, rhonchi, stridor, chest wall tenderness, accessory muscle use Cardiovascular Exam: Present: regular rate, normal rhythm, normal heart sounds. Absent: systolic murmur, diastolic murmur, rubs, gallop GI/Abdominal exam: Present: soft. Absent: distended, tenderness, guarding, rebound, rigid, mass Extremities exam: Present: normal inspection, normal capillary refill. Absent: pedal edema, calf tenderness Back exam: Present: normal inspection, paraspinal tenderness (Right thoracic). Absent: CVA tenderness (R), CVA tenderness (L), vertebral tenderness Neurological exam: Present: alert Skin exam: Present: warm, dry, intact, normal color. Absent: rash Course Vital Signs 04/23/20 04/23/20 04/24/20 22:55 23:56 00:03 Temperature 98.8 F Pulse Rate 85 77 Respiratory 16 18 18 Rate Blood Pressure 173/93 145/83 O2 Sat by Pulse 95 93 L Oximetry Medical Decision Making - Lab Data Result diagrams: 04/23/20 23:28 04/23/20 23:28 Lab Results 04/23/20 04/23/20 04/23/20 Range/Units 23:28 23:28 23:28 WBC 11.3 H (3.8-10.6) k/uL RBC 4.46 (3.80-5.40) m/uL Hgb 13.5 (11.4-16.0) gm/dL Hct 41.1 (34.0-46.0) % MCV 92.1 (80.0-100.0) fL MCH 30.2 (25.0-35.0) pg MCHC 32.8 (31.0-37.0) g/dL RDW 14.6 (11.5-15.5) % Plt Count 235 (150-450) k/uL MPV 7.8 Neutrophils % 51 % Lymphocytes % 38 % Monocytes % 6 % Eosinophils % 2 % Basophils % 1 % Neutrophils # 5.8 (1.3-7.7) k/uL Lymphocytes # 4.3 (1.0-4.8) k/uL Monocytes # 0.7 (0-1.0) k/uL Eosinophils # 0.2 (0-0.7) k/uL Basophils # 0.1 (0-0.2) k/uL D-Dimer 0.53 (<0.60) mg/L FEU Sodium (137-145) mmol/L Potassium (3.5-5.1) mmol/L Chloride (98-107) mmol/L Carbon Dioxide (22-30) mmol/L Anion Gap mmol/L BUN (7-17) mg/dL Creatinine (0.52-1.04) mg/dL Est GFR (CKD-EPI)AfAm (>60 ml/min/1.73 sqM) Est GFR (CKD-EPI)NonAf (>60 ml/min/1.73 sqM) Glucose (74-99) mg/dL Calcium (8.4-10.2) mg/dL Urine Color Yellow Urine Appearance Clear (Clear) Urine pH 6.5 (5.0-8.0) Ur Specific [place] 1.025 (1.001-1.035) Urine Protein Trace H (Negative) Urine Glucose (UA) Trace H (Negative) Urine Ketones Negative (Negative) Urine Blood Large H (Negative) Urine Nitrite Negative (Negative) Urine Bilirubin Negative (Negative) Urine Urobilinogen 4.0 (<2.0) mg/dL Ur Leukocyte Esterase Negative (Negative) Urine RBC >182 H (0-5) /hpf Urine WBC 1 (0-5) /hpf Ur Squamous Epith Cells 1 (0-4) /hpf Urine Mucus Rare H (None) /hpf Coronavirus (PCR) (Not Detectd) 04/23/20 04/23/20 Range/Units 23:28 23:28 WBC (3.8-10.6) k/uL RBC (3.80-5.40) m/uL Hgb (11.4-16.0) gm/dL Hct (34.0-46.0) % MCV (80.0-100.0) fL MCH (25.0-35.0) pg MCHC (31.0-37.0) g/dL RDW (11.5-15.5) % Plt Count (150-450) k/uL MPV Neutrophils % % Lymphocytes % % Monocytes % % Eosinophils % % Basophils % % Neutrophils # (1.3-7.7) k/uL Lymphocytes # (1.0-4.8) k/uL Monocytes # (0-1.0) k/uL Eosinophils # (0-0.7) k/uL Basophils # (0-0.2) k/uL D-Dimer (<0.60) mg/L FEU Sodium 140 (137-145) mmol/L Potassium 4.0 (3.5-5.1) mmol/L Chloride 106 (98-107) mmol/L Carbon Dioxide 28 (22-30) mmol/L Anion Gap 6 mmol/L BUN 10 (7-17) mg/dL Creatinine 0.82 (0.52-1.04) mg/dL Est GFR (CKD-EPI)AfAm >90 (>60 ml/min/1.73 sqM) Est GFR (CKD-EPI)NonAf 81 (>60 ml/min/1.73 sqM) Glucose 159 H (74-99) mg/dL Calcium 9.3 (8.4-10.2) mg/dL Urine Color Urine Appearance (Clear) Urine pH (5.0-8.0) Ur Specific [place] (1.001-1.035) Urine Protein (Negative) Urine Glucose (UA) (Negative) Urine Ketones (Negative) Urine Blood (Negative) Urine Nitrite (Negative) Urine Bilirubin (Negative) Urine Urobilinogen (<2.0) mg/dL Ur Leukocyte Esterase (Negative) Urine RBC (0-5) /hpf Urine WBC (0-5) /hpf Ur Squamous Epith Cells (0-4) /hpf Urine Mucus (None) /hpf Coronavirus (PCR) Not Detected (Not Detectd) - EKG Data -: EKG Interpreted by Tx EKG shows normal: sinus rhythm, axis (Normal), intervals (KS interval 196 ms, QRS duration 86 ms, both normal. QTC 483 ms, slightly prolonged.), QRS complexes (Normal), ST-T waves (Normal) Rate: normal (Rate 76 bpm) Disposition Clinical Impression: Back strain, Hematuria Disposition: HOME SELF-CARE Condition: Good Instructions (If sedation given, give patient instructions): Thoracic Back Strain (ED), Hematuria (ED) Prescriptions: Methocarbamol [Robaxin-750] 750 mg PO TID PRN #30 tablet PRN Reason: pain Is patient prescribed a controlled substance at d/c from ED?: No Referrals: Susy Gooden MD [Primary Care Provider] - 1-2 days
--- NOTE | 2020-04-23 23:36 | XR ---
EXAMINATION TYPE: XR chest 2V DATE OF EXAM: 04/23/2020 COMPARISON: 03/28/2019 HISTORY: Back pain TECHNIQUE: 2 views FINDINGS: Heart and mediastinum are normal. Lungs are clear of infiltrate. There is no heart failure. There are no hilar masses. Costophrenic angles are clear. IMPRESSION: Normal chest. No change.
[2020-04-23 23:53] LABS: African American GFR (CKD) >90 (>60 ml/min/1.73 sqM); Anion Gap 6 mmol/L; Blood Urea Nitrogen 10 mg/dL (7-17); Calcium 9.3 mg/dL (8.4-10.2); Carbon Dioxide 28 mmol/L (22-30); Chloride 106 mmol/L (98-107); Glucose 159 mg/dL (74-99); Non-African American GFR(CKD) 81 (>60 ml/min/1.73 sqM); Sodium 140 mmol/L (137-145)
[2020-04-23 23:59] LABS: Basophils # (A) 0.1 k/uL (0-0.2); Basophils % (A) 1 %; Eosinophils # (A) 0.2 k/uL (0-0.7); Eosinophils % (A) 2 %; HCT 41.1 % (34.0-46.0); HGB 13.5 gm/dL (11.4-16.0); Lymphocytes # (A) 4.3 k/uL (1.0-4.8); Lymphocytes % (A) 38 %; MCH 30.2 pg (25.0-35.0); MCHC 32.8 g/dL (31.0-37.0); MCV 92.1 fL (80.0-100.0); Mean Platelet Volume 7.8; Monocytes # (A) 0.7 k/uL (0-1.0); Monocytes % (A) 6 %; Neutrophils # (A) 5.8 k/uL (1.3-7.7); Neutrophils % (A) 51 %; Platelet Count 235 k/uL (150-450); RBC 4.46 m/uL (3.80-5.40); RDW 14.6 % (11.5-15.5); WBC 11.3 k/uL (3.8-10.6)
[2020-04-24 00:25] LABS: Appearance,Urine Clear (Clear); Bilirubin,Urine Negative (Negative); Blood,Urine Large (Negative); Color,Urine Yellow; Glucose,Urine (UA) Trace (Negative); Ketones,Urine Negative (Negative); Leukocyte Esterase,Urine Negative (Negative); Mucus,Urine Rare /hpf; Nitrite,Urine Negative (Negative); PH, Urine 6.5 (5.0-8.0); Protein,Urine Trace (Negative); RBC,Urine >182 /hpf (0-5); Specific Gravity,Urine 1.025 (1.001-1.035); Squamous Epithelial Cell,Urine 1 /hpf (0-4); WBC,Urine 1 /hpf (0-5)
[2020-04-24] MEDS ORDERED: oxyCODONE-APAP 7.5-325MG 1 EACH TAB PO STA (02:02)
--- NOTE | 2020-04-24 02:08 | CT ---
EXAM: CT Abdomen and Pelvis Without Intravenous Contrast CLINICAL HISTORY: ITS.REASON CT Reason: stone protocol TECHNIQUE: Axial computed tomography images of the abdomen and pelvis without intravenous contrast. CTDI is 15.17 mGy and DLP is 770.8 mGy-cm. This CT exam was performed using one or more of the following dose reduction techniques: automated exposure control, adjustment of the mA and/or kV according to patient size, and/or use of iterative reconstruction technique. COMPARISON: 09/29/2017 FINDINGS: Lung bases: Unremarkable. No mass. No consolidation. ABDOMEN: Liver: Unremarkable. Gallbladder and bile ducts: Unremarkable. No calcified stones. No ductal dilation. Pancreas: Unremarkable. No ductal dilation. Spleen: Unremarkable. No splenomegaly. Adrenals: Unremarkable. No mass. Kidneys and ureters: Unremarkable. No obstructing stones. No hydronephrosis. Stomach and bowel: Moderate fecal burden throughout the colon. No obstruction. No mucosal thickening. PELVIS: Appendix: No findings to suggest acute appendicitis. Bladder: Unremarkable. No stones. Reproductive: Unremarkable as visualized. ABDOMEN and PELVIS: Intraperitoneal space: Unremarkable. No free air. No significant fluid collection. Bones/joints: No acute fracture. No dislocation. Soft tissues: Unremarkable. Vasculature: Mild calcific atherosclerotic plaque of the infrarenal abdominal aorta. No abdominal aortic aneurysm. Lymph nodes: Unremarkable. No enlarged lymph nodes. IMPRESSION: No acute intra-abdominal process.
[2020-04-24 02:33] VITALS: BP 146/97; PULSE 74; RESP 16
== END 2020-04-24 02:34 | disposition home or self-care (01) ==
LOC: EC 22:47
DX: S39.012A Strain of muscle, fascia and tendon of lower back, initial encounter (principal); E11.9 Type 2 diabetes mellitus without complications; R31.9 Hematuria, unspecified; J44.9 Chronic obstructive pulmonary disease, unspecified; M19.90 Unspecified osteoarthritis, unspecified site; K21.9 Gastro-esophageal reflux disease without esophagitis; F41.9 Anxiety disorder, unspecified; F32.9 Major depressive disorder, single episode, unspecified; F41.0 Panic disorder [episodic paroxysmal anxiety]; F43.10 Post-traumatic stress disorder, unspecified; F17.200 Nicotine dependence, unspecified, uncomplicated; Z20.822 Contact with and (suspected) exposure to COVID-19; Z79.51 Long term (current) use of inhaled steroids; Z79.899 Other long term (current) drug therapy; Z79.82 Long term (current) use of aspirin; Z79.84 Long term (current) use of oral hypoglycemic drugs; Z88.2 Allergy status to sulfonamides; Z88.5 Allergy status to narcotic agent; X50.0XXA Overexertion from strenuous movement or load, initial encounter; Y92.009 Unspecified place in unspecified non-institutional (private) residence as the place of occurrence of the external cause
CPT/HCPCS: 36415; 71046; 74176; 80048; 81001; 85025; 85379; 87635; 93005; 99284

== ENCOUNTER → 2020-05-08 | Outpatient (CLI) | payer MEDICARE, OTHER ==
[2020-05-08 21:56] LABS: Basophils # (A) 0.04 X 10*3/uL (0.00-0.10); Basophils % (A) 0.5 %; Eosinophils # (A) 0.23 X 10*3/uL (0.04-0.35); Eosinophils % (A) 2.9 %; HCT 44.4 % (37.2-46.3); HGB 14.3 g/dL (12.0-15.0); Lymphocytes # (A) 3.54 X 10*3/uL (0.90-5.00); Lymphocytes % (A) 44.3 %; MCH 30.2 pg (27.0-32.0); MCHC 32.2 g/dL (32.0-37.0); MCV 93.7 fL (80.0-97.0); Mean Platelet Volume 11.2 fL (9.5-12.2); Monocytes # (A) 0.64 X 10*3/uL (0.20-1.00); Neutrophils # (A) 3.54 X 10*3/uL (1.80-7.70); Neutrophils % (A) 44.2 %; Platelet Count 200 X 10*3/uL (140-440); RBC 4.74 X 10*6/uL (4.10-5.20); RDW 14.6 % (11.5-14.5)
[2020-05-08 23:36] LABS: African American GFR (CKD) 83.4 (60.0-200.0); Albumin 4.8 g/dL (3.80-4.90); Albumin/Globulin Ratio 1.92 (1.60-3.17); Anion Gap 7.8 mmol/L (4.00-12.00); BUN/Creat Ratio 15.56 Ratio (12.00-20.00); Calcium 9.6 mg/dL (8.7-10.3); Carbon Dioxide 28.2 mmol/L (21.6-31.8); Chol/HDL Ratio 3.28; Globulin 2.5 g/dL (1.6-3.3); LDL Cholesterol,Calculated 57.8 mg/dL (0.0-131.0); Potassium 4.3 mmol/L (3.5-5.5); Total Bilirubin 0.5 mg/dL (0.2-1.2); Total Protein 7.3 g/dL (6.2-8.2); VLDL Calculation 24.2 mg/dL (5.00-40.00)
[2020-05-09 05:10] LABS: Urine Creatinine 254.1 mg/dL
== END | disposition home or self-care (01) ==
LOC: LABWHC1 12:53
PROVIDERS: ATTEND Internal Medicine
DX: E11.9 Type 2 diabetes mellitus without complications (principal); E78.5 Hyperlipidemia, unspecified; E55.9 Vitamin D deficiency, unspecified; D72.820 Lymphocytosis (symptomatic)
CPT/HCPCS: 36415; 80053; 80061; 82043; 82306; 82570; 85025

== ENCOUNTER → 2021-03-21 | Outpatient (CLI) | payer MEDICARE, OTHER ==
--- NOTE | 2021-03-25 09:27 | MM ---
Reason for exam: screening (asymptomatic). Last mammogram was performed 1 year and 4 months ago. History: Patient is postmenopausal. Taking estrogen for 2 years beginning at age 53. Physical Findings: A clinical breast exam by your physician is recommended on an annual basis and results should be correlated with mammographic findings. MG 3D Screening Mammo W/Cad Bilateral CC, MLO, and XCCL view(s) were taken. Prior study comparison: November 24, 2019, right breast MG 3d work up w/cad RT. November 16, 2019, bilateral MG 3d screening mammo w/cad. The breast tissue is heterogeneously dense. This may lower the sensitivity of mammography. No significant changes when compared with prior studies. ASSESSMENT: Benign, BI-RAD 2 RECOMMENDATION: Routine screening mammogram of both breasts in 1 year.
== END | disposition home or self-care (01) ==
LOC: RADMAMWWP 14:43
PROVIDERS: ATTEND Internal Medicine
DX: Z12.31 Encounter for screening mammogram for malignant neoplasm of breast (principal); Z78.0 Asymptomatic menopausal state
CPT/HCPCS: 77063; 77067